=== PATIENT | male | born 1965 | race Caucasian/White ===

== ENCOUNTER 2017-09-06 13:04 | Emergency (ER) | payer MEDICARE, MEDICAID ==
[2016-02-16 10:09] VITALS: Ht 195.6 cm; Wt 128.8 kg
[~2017-09-06] VITALS: Ht 195.6 cm; Wt 128.8 kg
[~2017-09-06 13:04] MED LIST: ACET-2031 PO; ACET500T68 PO; ALBU8.5H11 INH; ALBU8.5H12 IH; AMOX500T10 PO; APIX2.5T PO; ARIP5TAB28 PO; ASPI-715 PO; ATIVAN; AZIT-18 PO; AZIT500T47 PO; BENZ1 PO; BRIM5DRO7 OU; BRIM5DRO8 OP; BRIOD OS; BUPR200T18 PO; BUS5 PO; BUSP10TA95 PO; BUSP15TA69 PO; BUSP7.5T7 PO; CEP500 PO; CEPH-13 PO; CETI10TA PO; CITA-155 PO; CITA-156 PO; CLO5 PO; CLOM25CA PO; CYCL-277 PO; CYCL10TA29 PO; DESV50TA9 PO; DIA10 PO; DIA5 PO; DIAZ-308 PO; DICL-195 PO; DIPH-740 PO; DOCU-202 PO; ENO150PT SQ; ENO40I SQ; ENOX120D5 SQ; ENOX60DI8 SQ; FLU60SYR30 IM ONLY; FLUO-177 PO; GOLYTE PO; HYDR-3074 PO; HYDR-385 PO; HYDR-4309 PO; HYDR25CA13 PO; HYDR25CA84 PO; HYDR50CA48 PO; IBUP600T22 PO; IBUP800T37 PO; ICOS1CAP PO; IPR14R INH; IPRA30SP7 NS; KET10 PO; LOR1 PO; LOR5 PO; LOR5/325 PO; LORA-1455 PO; LORA-1458 PO; LURA20TA PO; LURA40TA3 PO; MELA1TAB27 PO; METH-542 PO; METH-543 PO; MINE120C6 TP; MIR15 PO; MIRT-18 PO; MIRT-25 PO; MIRT45TA97 PO; MULT-1379 PO; MULT-820 PO; MULT-859 PO; MULT-865 PO; MVM PO; MYLL PO; NIAC-8 PO; NO MEDS; OLA5 PO; OLAN10TA19 PO; OLAN2.5T20 PO; OLAN2.5T22 PO; OLAN20TA17 PO; OLAN20TA20 PO; OLAN5TAB PO; OLAN5TAB25 PO; OLAN5TAB27 PO; OMEG-80 PO; OMEP-153 PO; OMEP-218 PO; OXCA600T30 PO; PAN40 PO; PANT20TA26 PO; PARO-243 PO; PER PO; PRAZ1CAP26 PO; PSEU30TA PO; QUE100 PO; QUET300T17 PO; QUEXR300PT PO; RANI-324 PO; RIV10 PO; RIVA10TA; RIVA20TA PO; ROSU20TA23 PO; SALSP ENA; SULF-198 PO; TIO18R INH; TOBDOO OD; TOPI-121 PO; TRAM-420; TRAM-420 PO; TRAZ-163 PO; TRAZ300T17 PO; VILA10TA PO; VITA100C12 PO; WAR5 PO; WAR75 PO; WARF-12 PO; WARF-18 PO; ZIPR40CA13 PO; ZOLP-350 PO; [UNRECOGNIZED DRUG - CODE] PO; [UNRECOGNIZED DRUG - CODE] PO; [UNRECOGNIZED DRUG - CODE] TP; [UNRECOGNIZED DRUG - OTHER]
[2017-09-06] MEDS ORDERED: APIX5TAB PO (13:14)
--- NOTE | 2017-09-06 13:15 | ER Report ---
History and Physical Time Seen By MD: 13:13 HPI/ROS CHIEF COMPLAINT: Racing Thoughts HISTORY OF PRESENT ILLNESS: Patient is a 52-year-old male who presents to the emergency department for anxiety situational depression and intense thoughts of harming himself. Patient apparently is well-known to [facility]. He's had multiple evaluations and admissions last was 02/16/2016. Patient had initially been "banned" from the unit due to threatening and stalking behavior to staff members. He states that he is going through a lot at his home, he is had problems with past residence for somewhat violent behavior and using profanity. He reports undergoing too many pressures of life and " feels anxious is having racing thoughts. He states he took 5 mg of Zyprexa without effect. Because the symptoms are worsening he decided to present to the ER for further evaluation. When asked specifically about suicidal plan he stated that he would overdose on medications if he had any. He states he has no access to a gun but does have a knife at home that he has thought about sticking into his neck. He states that it when this thought occurs it is fairly fleeting and he knows he does not want to "hurt himself" so he has not actually gone through with any suicide attempts. Denies drugs or alcohol but was noticed by nursing staff that he "smells of alcohol". Patient has a prior past medical history for DVT is currently on Eliquis. REVIEW OF SYSTEMS: Constitutional: No fever, no chills. Eyes: No discharge. ENT: No sore throat. Cardiovascular: No chest pain, no palpitations. Respiratory: No cough, no shortness of breath. Gastrointestinal: No abdominal pain, no vomiting. Genitourinary: No hematuria. Musculoskeletal: No back pain. Skin: No rashes. Neurological: No headache. Psychiatric: Racing intrusive thoughts suicidal ideation Allergies: Coded Allergies: Haloperidol Lactate (Verified Adverse Reaction, Severe, LARYNGOSPASM, ) niacin (Verified Adverse Reaction, Unknown, BODY RASH TO TORSO AND LIMBS, 09/06/17) Home Meds Active Scripts Lorazepam (ATIVAN) 1 Mg Tablet, 1 MG PO Q8H for Anxiety, #5 TAB 0 Refills Prov:ARSALAN ARMENTA MD 09/06/17 Olanzapine (OLANZAPINE) 5 Mg Tablet, 5 MG PO QDAY, #90 TAB 3 Refills Prov:DEJUAN DOSHI MD 06/26/17 Ipratropium [place] 17 Mcg/Act (ATROVENT HFA 17 MCG/ACT) 12.9 Gm Inh, 12.9 GM INH Q4H Y for SHORTNESS OF BREATH, #3 INH 4 Refills Prov:DEJUAN DOSHI MD 05/23/17 Reported Medications Apixaban (ELIQUIS) 5 Mg Tablet, 15 MG PO BID 09/06/17 Acetaminophen (TYLENOL EXTRA STRENGTH) 500 Mg Tablet, 1-2 TAB PO, TAB 03/01/17 Brimonidine Tartrate (ALPHAGAN P) 5 Ml Drops, 1 DROP OU BID 12/13/14 Discontinued Reported Medications Buspirone Hcl (BUSPIRONE HCL) 15 Mg Tablet, 1 TAB PO BID, #10 TAB 03/01/17 Discontinued Scripts Apixaban (ELIQUIS) 2.5 Mg Tablet, 2.5 MG PO BID, #180 TAB 3 Refills Prov:DEJUAN DOSHI MD 06/26/17 Diazepam (DIAZEPAM) 5 Mg Tablet, 5 MG PO TID, #20 TAB Prov:DEJUAN DOSHI MD 06/26/17 Tiotropium [place] (SPIRIVA) 18 Mcg/Cap Inh, 18 MCG INH DAILY, #30 INH Prov:DEJUAN DOSHI MD 05/29/17 Past Medical/Surgical History Past Medical History HEENT: Reports hx of: glaucoma (closed angle glaucoma) Cardiovascular: Reports hx of: DVT (2009 and 2011 in left leg) hyperlipidemia (simvastatin/ atorvastatin/niacin / fish oil) Gastrointestinal: Reports hx of: GERD other GI history (diffuse esophageal spasms) Musculoskeletal: Reports hx of: back pain (chronic) fibromyalgia Integumentary: Reports hx of: other integumentary hx (left ear basal cell CA in 2008, skin cancer removal) Psychiatric: Reports hx of: anxiety depression personality disorder (borderline personality disorder) psych hospitalization suicide attempt(s) (2 attempts, last attempt 1992) Past Surgical History Integumentary: Reports hx of: skin cancer removal (left ear, 2008) Hx Smoking: Yes (1 PPWEEK X37YRS) Smoking Status: Current: Every Day Smoker Exposure to Second Hand Smoke?: No Hx Substance Use Disorder: No Hx Alcohol Use: Yes Constitutional Vital Sign - Last 24 Hours 09/06/17 09/06/17 13:04 14:30 Temp 97.9 Pulse 83 80 Resp 16 16 B/P (MAP) 151/90 141/86 (104) Pulse Ox 95 95 O2 Delivery Room Air Room Air Physical Exam General Appearance: The patient is alert, has no immediate need for airway protection and no signs of toxicity. Increased psychomotor agitation Eyes: Pupils equal and round no pallor or injection. ENT, Mouth: Mucous membranes are moist. Respiratory: There are no retractions, lungs are clear to auscultation. Cardiovascular: Regular rate and rhythm. Gastrointestinal: Abdomen is soft and non tender, no masses, bowel sounds normal. Neurological: Awake alert oriented 3 Skin: Warm and dry, no rashes. Musculoskeletal: Neck is supple non tender. Extremities are nontender, nonswollen and have full range of motion. Psychiatric: Racing intrusive thoughts, suicidal ideation mention of a plant stick a knife in his neck. Patient somewhat tangential but thought process seems logical and goal-directed. Patient does not seem to be responding to any internal stimuli. Medical Decision Making Data Points Result Diagram: 09/06/17 1320 09/06/17 1320 Laboratory Hematology Test 09/06/17 13:20 Red Blood Count 5.36 M/uL (4.00-5.60) Mean Corpuscular Volume 89.1 fL (80.0-96.0) Mean Corpuscular Hemoglobin 31.2 pg (26.0-33.0) Mean Corpuscular Hemoglobin Concent 35.0 g/dL (32.0-36.0) Red Cell Distribution Width 13.2 % (11.5-14.5) Mean Platelet Volume 8.4 fL (7.2-11.1) Neutrophils (%) (Auto) 67.1 % (39.4-72.5) Lymphocytes (%) (Auto) 25.6 % (17.6-49.6) Monocytes (%) (Auto) 5.9 % (4.1-12.4) Eosinophils (%) (Auto) 0.7 % (0.4-6.7) Basophils (%) (Auto) 0.7 % (0.3-1.4) Nucleated RBC Relative Count (auto) 0.2 /100WBC Neutrophils # (Auto) 4.2 K/uL (2.0-7.4) Lymphocytes # (Auto) 1.6 K/uL (1.3-3.6) Monocytes # (Auto) 0.4 K/uL (0.3-1.0) Eosinophils # (Auto) 0.0 K/uL (0.0-0.5) Basophils # (Auto) 0.0 K/uL (0.0-0.1) Nucleated RBC Absolute Count (auto) 0.01 K/uL Urine Color Yellow Urine Clarity Clear Urine pH 5.0 pH (4.8-9.5) Urine Specific [place] 1.011 Urine Protein Negative mg/dL (NEGATIVE) Urine Glucose (UA) Negative mg/dL (NEGATIVE) Urine Ketones Negative mg/dL (NEGATIVE) Urine Blood Negative (NEGATIVE) Urine Nitrite Negative (NEGATIVE) Urine Bilirubin Negative (NEGATIVE) Urine Urobilinogen Negative mg/dL (0.2-1.9) Urine Leukocyte Esterase Negative (NEGATIVE) Urine RBC <1 /HPF (0-2/HPF) Urine WBC <1 /HPF (0-5/HPF) Urine Squamous Epithelial Cells None /LPF (</=FEW) Urine Bacteria Negative /HPF (NONE-FEW) Urine Mucus None /HPF (NONE-FEW) Sodium Level 137 mmol/L (137-145) Potassium Level 3.8 mmol/L (3.5-5.0) Chloride Level 106 mmol/L (98-107) Carbon Dioxide Level 17 mmol/L (22-30) Blood Urea Nitrogen 12 mg/dl (9-21) Creatinine 1.00 mg/dl (0.66-1.25) Glomerular Filtration Rate Calc > 60.0 Random Glucose 110 mg/dl (75-110) Calcium Level 9.8 mg/dl (8.4-10.2) Magnesium Level 1.8 mg/dl (1.7-2.2) Total Bilirubin 0.6 mg/dl (0.2-1.3) Aspartate Amino Transf (AST/SGOT) 34 U/L (0-35) Alanine Aminotransferase (ALT/SGPT) 62 U/L (0-56) Alkaline Phosphatase 80 U/L (0-126) Total Protein 7.5 gm/dl (6.3-8.2) Albumin 4.6 g/dl (3.5-5.0) Thyroid Stimulating Hormone (TSH) 1.46 uIU/ml (0.46-4.68) Salicylates Level < 10 mg/L Salicylate Last Dose Date unk Urine Opiates Screen Negative Acetaminophen Level < 10 ug/ml Urine Barbiturates Screen Negative Ur Tricyclic Antidepressants Screen Negative Urine Phencyclidine Screen Negative Urine Amphetamines Screen Negative Urine Benzodiazepines Screen Negative Urine Cocaine Screen Negative Urine Cannabinoids Screen Negative Serum Alcohol < 10 mg/dl Chemistry Test 09/06/17 13:20 White Blood Count 6.3 k/uL (4.5-11.0) Red Blood Count 5.36 M/uL (4.00-5.60) Hemoglobin 16.7 g/dL (14.0-18.0) Hematocrit 47.8 % (42.0-52.0) Mean Corpuscular Volume 89.1 fL (80.0-96.0) Mean Corpuscular Hemoglobin 31.2 pg (26.0-33.0) Mean Corpuscular Hemoglobin Concent 35.0 g/dL (32.0-36.0) Red Cell Distribution Width 13.2 % (11.5-14.5) Platelet Count 213 K/uL (150-450) Mean Platelet Volume 8.4 fL (7.2-11.1) Neutrophils (%) (Auto) 67.1 % (39.4-72.5) Lymphocytes (%) (Auto) 25.6 % (17.6-49.6) Monocytes (%) (Auto) 5.9 % (4.1-12.4) Eosinophils (%) (Auto) 0.7 % (0.4-6.7) Basophils (%) (Auto) 0.7 % (0.3-1.4) Nucleated RBC Relative Count (auto) 0.2 /100WBC Neutrophils # (Auto) 4.2 K/uL (2.0-7.4) Lymphocytes # (Auto) 1.6 K/uL (1.3-3.6) Monocytes # (Auto) 0.4 K/uL (0.3-1.0) Eosinophils # (Auto) 0.0 K/uL (0.0-0.5) Basophils # (Auto) 0.0 K/uL (0.0-0.1) Nucleated RBC Absolute Count (auto) 0.01 K/uL Urine Color Yellow Urine Clarity Clear Urine pH 5.0 pH (4.8-9.5) Urine Specific [place] 1.011 Urine Protein Negative mg/dL (NEGATIVE) Urine Glucose (UA) Negative mg/dL (NEGATIVE) Urine Ketones Negative mg/dL (NEGATIVE) Urine Blood Negative (NEGATIVE) Urine Nitrite Negative (NEGATIVE) Urine Bilirubin Negative (NEGATIVE) Urine Urobilinogen Negative mg/dL (0.2-1.9) Urine Leukocyte Esterase Negative (NEGATIVE) Urine RBC <1 /HPF (0-2/HPF) Urine WBC <1 /HPF (0-5/HPF) Urine Squamous Epithelial Cells None /LPF (</=FEW) Urine Bacteria Negative /HPF (NONE-FEW) Urine Mucus None /HPF (NONE-FEW) Glomerular Filtration Rate Calc > 60.0 Calcium Level 9.8 mg/dl (8.4-10.2) Magnesium Level 1.8 mg/dl (1.7-2.2) Total Bilirubin 0.6 mg/dl (0.2-1.3) Aspartate Amino Transf (AST/SGOT) 34 U/L (0-35) Alanine Aminotransferase (ALT/SGPT) 62 U/L (0-56) Alkaline Phosphatase 80 U/L (0-126) Total Protein 7.5 gm/dl (6.3-8.2) Albumin 4.6 g/dl (3.5-5.0) Thyroid Stimulating Hormone (TSH) 1.46 uIU/ml (0.46-4.68) Salicylates Level < 10 mg/L Salicylate Last Dose Date unk Urine Opiates Screen Negative Acetaminophen Level < 10 ug/ml Urine Barbiturates Screen Negative Ur Tricyclic Antidepressants Screen Negative Urine Phencyclidine Screen Negative Urine Amphetamines Screen Negative Urine Benzodiazepines Screen Negative Urine Cocaine Screen Negative Urine Cannabinoids Screen Negative Serum Alcohol < 10 mg/dl Toxicology Test 09/06/17 13:20 Salicylates Level < 10 mg/L Salicylate Last Dose Date unk Urine Opiates Screen Negative Acetaminophen Level < 10 ug/ml Urine Barbiturates Screen Negative Ur Tricyclic Antidepressants Screen Negative Urine Phencyclidine Screen Negative Urine Amphetamines Screen Negative Urine Benzodiazepines Screen Negative Urine Cocaine Screen Negative Urine Cannabinoids Screen Negative Serum Alcohol < 10 mg/dl Urinalysis Test 09/06/17 13:20 Urine Color Yellow Urine Clarity Clear Urine pH 5.0 pH (4.8-9.5) Urine Specific [place] 1.011 Urine Protein Negative mg/dL (NEGATIVE) Urine Glucose (UA) Negative mg/dL (NEGATIVE) Urine Ketones Negative mg/dL (NEGATIVE) Urine Blood Negative (NEGATIVE) Urine Nitrite Negative (NEGATIVE) Urine Bilirubin Negative (NEGATIVE) Urine Urobilinogen Negative mg/dL (0.2-1.9) Urine Leukocyte Esterase Negative (NEGATIVE) Urine RBC <1 /HPF (0-2/HPF) Urine WBC <1 /HPF (0-5/HPF) Urine Squamous Epithelial Cells None /LPF (</=FEW) Urine Bacteria Negative /HPF (NONE-FEW) Urine Mucus None /HPF (NONE-FEW) EKG/Imaging EKG Interpretation EKG shows normal sinus rhythm with no significant ST segment or T-wave abnormalities. Monitor Interpretation: Normal Sinus Rhythm ED Course/Re-evaluation ED Course 09/06/2017 1:33:49 pm Plan at this time will be medical screening evaluation. We'll reassess psychiatric condition we'll give patient 2 mg of oral Ativan for anxiety. Decision to Disposition Date: Sep 06, 2017 Decision to Disposition Time: 14:22 Depart Departure Latest Vital Signs Vital Signs Date Time Temp Pulse Resp B/P (MAP) Pulse Ox O2 Delivery O2 Flow Rate FiO2 09/06/17 14:30 80 16 141/86 (104) 95 Room Air 09/06/17 13:04 97.9 Impression: Primary Impression: Adjustment disorder with depressed mood Condition: Improved Disposition: HOME OR SELF-CARE Referrals: DEJUAN DOSHI MD (PCP) New Scripts Lorazepam (ATIVAN) 1 Mg Tablet 1 MG PO Q8H for Anxiety, #5 TAB 0 Refills Prov: ARSALAN ARMENTA MD 09/06/17 Patient Instructions: Anxiety (ED), Suicide Prevention for Adults (DC) ARSALAN ARMENTA MD Sep 06, 2017 13:15
[2017-09-06] MEDS ORDERED: LORazepam 1 MG TAB PO ONE (13:30)
--- NOTE | 2017-09-06 13:35 | EKG ---
FACILITY: [facility] PATIENT NAME: BLANCO RUFFIN : [id number] MR: [id number] V: [id number] EXAM DATE: ORDERING PHYSICIAN: ARSALAN ARMENTA TECHNOLOGIST: ALEJANDRO Mari Reason : ANXIETY Blood Pressure : / mmHG Vent. Rate : 079 BPM Atrial Rate : 079 BPM P-R Int : 160 ms QRS Dur : 102 ms QT Int : 396 ms P-R-T Axes : 053 037 034 degrees QTc Int : 454 ms Normal sinus rhythm Normal ECG When compared with ECG of 02-MAR-2017 16:11, No significant change was found Confirmed by MAXIMILIANO LINN ([id number]) on 09/08/2017 7:43:36 AM Referred By: GEOVANY Confirmed By:MAXIMILIANO LINN
[2017-09-06 13:42] LABS: PLATELET COUNT, AUTOMATED 213 K/uL (150-450)
[2017-09-06] MEDS ORDERED: LORA-1456 PO (14:24)
[2017-09-06 14:30] VITALS: BP 141/86
== END 2017-09-06 14:30 | disposition home or self-care (01) ==
LOC: ER 13:34
DX: F43.23 Adjustment disorder with mixed anxiety and depressed mood (principal)
CPT/HCPCS: 36415; 80305; 81001; 83735; 84443; 85025; 93005; 99283; A9270; G0480; 80320; 80329; 82040; 82247; 82310; 82374; 82435; 82565; 82947; 84075; 84132; 84155; 84295; 84450; 84460; 84520

== ENCOUNTER 2017-10-01 04:41 | Emergency (ER) | payer MEDICARE, MEDICAID ==
[2016-02-16 10:09] VITALS: Wt 128.8 kg
[~2017-10-01 04:41] MED LIST changes: +APIX5TAB PO; +LORA-1456 PO; -WARF-18 PO; +WARF5TAB23 PO
--- NOTE | 2017-10-01 04:46 | ER Report ---
History and Physical Time Seen By MD: 04:45 HPI/ROS CHIEF COMPLAINT: Anxiety HISTORY OF PRESENT ILLNESS: 52-year-old male presents ambulatory to the ER complaining of severe anxiety. Patient's shaking and unable to sleep. He's woke up at 3 times with 3 different nightmares. He states his neighbors of an agitated by being on the wall. He would like to speak to the police about his neighbors. Patient was seen here approximately 2 weeks ago with acute anxiety attack expressing some suicidal ideation. Patient's been banned from the behavioral health services unit for stalking and threatening / inappropriate behavior. Patient's last admission was February 2016. Patient notes he shaking and overwhelmed. He is denying suicidal ideation. REVIEW OF SYSTEMS: Respiratory: No cough, no dyspnea. Cardiovascular: No chest pain, no palpitations. Gastrointestinal: No vomiting, no abdominal pain. Musculoskeletal: No back pain. Allergies: Coded Allergies: Haloperidol Lactate (Verified Adverse Reaction, Severe, LARYNGOSPASM, 10/01) niacin (Verified Adverse Reaction, Unknown, BODY RASH TO TORSO AND LIMBS, 10/01/17) Home Meds Active Scripts Lorazepam (ATIVAN) 1 Mg Tablet, 1 MG PO Q4-6H Y for ANXIETY, #15 Prov:HAIR FLOWER DO 10/01/17 Olanzapine (OLANZAPINE) 5 Mg Tablet, 5 MG PO QDAY, #90 TAB 3 Refills Prov:DEJUAN DOSHI MD 06/26/17 Ipratropium [place] 17 Mcg/Act (ATROVENT HFA 17 MCG/ACT) 12.9 Gm Inh, 12.9 GM INH Q4H Y for SHORTNESS OF BREATH, #3 INH 4 Refills Prov:DEJUAN DOSHI MD 05/23/17 Reported Medications Apixaban (ELIQUIS) 5 Mg Tablet, 15 MG PO BID 09/06/17 Acetaminophen (TYLENOL EXTRA STRENGTH) 500 Mg Tablet, 1-2 TAB PO, TAB 03/01/17 Brimonidine Tartrate (ALPHAGAN P) 5 Ml Drops, 1 DROP OU BID 12/13/14 Discontinued Scripts Lorazepam (ATIVAN) 1 Mg Tablet, 1 MG PO Q8H for Anxiety, #5 TAB 0 Refills Prov:ARSALAN ARMENTA MD 09/06/17 Past Medical/Surgical History Past Medical History HEENT: Reports hx of: glaucoma (closed angle glaucoma) Cardiovascular: Reports hx of: DVT (2009 and 2011 in left leg) hyperlipidemia (simvastatin/ atorvastatin/niacin / fish oil) Gastrointestinal: Reports hx of: GERD other GI history (diffuse esophageal spasms) Musculoskeletal: Reports hx of: back pain (chronic) fibromyalgia Integumentary: Reports hx of: other integumentary hx (left ear basal cell CA in 2008, skin cancer removal) Psychiatric: Reports hx of: anxiety depression personality disorder (borderline personality disorder) psych hospitalization suicide attempt(s) (2 attempts, last attempt 1992) Past Surgical History Integumentary: Reports hx of: skin cancer removal (left ear, 2008) Reviewed Nurses Notes: Yes Old Medical Records Reviewed: Yes Hx Smoking: Yes (1 PPWEEK X37YRS) Smoking Status: Current: Every Day Smoker Exposure to Second Hand Smoke?: No Hx Substance Use Disorder: No Hx Alcohol Use: Yes Constitutional Vital Sign - Last 24 Hours 10/01/17 10/01/17 04:43 05:33 Temp 98.2 Pulse 107 80 Resp 22 B/P (MAP) 131/104 148/72 (97) Pulse Ox 97 O2 Delivery Room Air Physical Exam General Appearance: The patient is alert, has no immediate need for airway protection and no current signs of toxicity. Tremulous, agitated, anxious- appearing HEENT: Pupils equal and round no injection. Oropharynx without redness or exudate, mucous membranes are moist Respiratory: Chest is non tender, lungs are clear to auscultation. Cardiac: regular rate and rhythm Gastrointestinal: Abdomen is soft and non tender, no masses, bowel sounds normal. Musculoskeletal: Neck: Neck is supple and non tender. No thyromegaly Extremities have full range of motion and are non tender. Skin: No rashes or lesions. DIFFERENTIAL DIAGNOSIS: After history and physical exam differential diagnosis was considered for depression including functional and major depression, situational depression, medication side effect, anxiety, panic attack, drugs and alcohol abuse. Medical Decision Making ED Course/Re-evaluation ED Course Patient was admitted to an examination room. H&P was done. The dental diagnoses was considered. Patient with acute agitation and anxiety. She's been unable to sleep. He's been chain smoking cigarettes. He presents to the ER. He is not suicidal or homicidal. He is quite frustrated with his neighbors. He is woken up with 3 nightmares tonight starring his neighbors. Patient's medicated with Ativan 2 mg by mouth. He is monitored for 45 minutes feels improved. He's spoken with police regarding his neighbors. Patient advised to follow-up with his primary care Decision to Disposition Date: Oct 01, 2017 Decision to Disposition Time: 05:07 Depart Departure Latest Vital Signs Vital Signs Date Time Temp Pulse Resp B/P (MAP) Pulse Ox O2 Delivery O2 Flow Rate FiO2 10/01/17 05:33 80 148/72 (97) 10/01/17 04:43 98.2 22 97 Room Air Impression: Primary Impression: Anxiety Additional Impressions: Panic attack Nightmares Condition: Improved Disposition: HOME OR SELF-CARE Referrals: DEJUAN DOSHI MD (PCP) New Scripts Lorazepam (ATIVAN) 1 Mg Tablet 1 MG PO Q4-6H Y for ANXIETY, #15 Prov: HAIR FLOWER DO 10/01/17 Patient Instructions: Anxiety (ED) Problem Qualifiers HAIR FLOWER DO Oct 01, 2017 04:46
[2017-10-01] MEDS ORDERED: LORazepam 1 MG TAB PO ONE (05:00)
[2017-10-01] MEDS ORDERED: LORA-1456 PO (05:10)
[2017-10-01 05:33] VITALS: BP 148/72
== END 2017-10-01 05:32 | disposition home or self-care (01) ==
LOC: ER 04:58
DX: F41.0 Panic disorder [episodic paroxysmal anxiety] (principal); F51.5 Nightmare disorder
CPT/HCPCS: 99282; A9270

== ENCOUNTER 2017-11-02 15:49 | Emergency (ER) | payer MEDICARE, MEDICAID ==
[2016-02-16 10:09] VITALS: Wt 125.6 kg
--- NOTE | 2017-11-02 16:00 | ER Report ---
History and Physical Time Seen By MD: 16:00 Hx. of Stated Complaint: PATIENT HAVING INCREASED ANXIETY FROM AN ALTERCATION WITH HIS NEIGHBOR HPI/ROS CHIEF COMPLAINT: Anxiety HISTORY OF PRESENT ILLNESS: 52-year-old male patient presents to emergency room with complaint of anxiety. Patient states that he has been having troubles with his new neighbor. Patient states that he was trying to go upstairs to his apartment elevator, however this neighbor was blocking the elevator. That caused him to become very anxious, he states he is having a hard time controlling himself. He states that he quit smoking for 2 weeks, however last couple hours he has "chain smoked". Patient states that he had a fleeting thought of harming self, however denies any suicidal ideation or homicidal ideation at this time. Patient states that he would like some Ativan to help with his anxiety and he liked to go home. He states that he is here because he is unable to control his anxiety. REVIEW OF SYSTEMS: Respiratory: No cough, no dyspnea. Cardiovascular: No chest pain, no palpitations. Gastrointestinal: No vomiting, no abdominal pain. Musculoskeletal: No back pain. Allergies: Coded Allergies: Haloperidol Lactate (Verified Adverse Reaction, Severe, LARYNGOSPASM, 10/01) niacin (Verified Adverse Reaction, Unknown, BODY RASH TO TORSO AND LIMBS, 10/01/17) Home Meds Active Scripts Lorazepam (ATIVAN) 1 Mg Tablet, 1 MG PO Q4-6H Y for ANXIETY, #15 TAB Prov:SAAD MUÑIZ STORYBOARD ARTIST 11/02/17 Lorazepam (ATIVAN) 1 Mg Tablet, 1 MG PO Q4-6H Y for ANXIETY, #15 Prov:HAIR FLOWER DO 10/01/17 Olanzapine (OLANZAPINE) 5 Mg Tablet, 5 MG PO QDAY, #90 TAB 3 Refills Prov:DEJUAN DOSHI MD 06/26/17 Ipratropium [place] 17 Mcg/Act (ATROVENT HFA 17 MCG/ACT) 12.9 Gm Inh, 12.9 GM INH Q4H Y for SHORTNESS OF BREATH, #3 INH 4 Refills Prov:DEJUAN DOSHI MD 05/23/17 Reported Medications Apixaban (ELIQUIS) 5 Mg Tablet, 15 MG PO BID 09/06/17 Acetaminophen (TYLENOL EXTRA STRENGTH) 500 Mg Tablet, 1-2 TAB PO, TAB 03/01/17 Brimonidine Tartrate (ALPHAGAN P) 5 Ml Drops, 1 DROP OU BID 12/13/14 Past Medical/Surgical History Patient has a past medical history of DVT, hyperlipidemia, esophageal spasms, muscle tension, kidney stones, arthritis, hand fracture, foot fracture, nose fracture, back pain, dysphagia, alcohol abuse, schizoaffective disorder, depression, anxiety, cancer. Patient has a surgical history of eye surgery, skin cancer moves from left ear, left wrist surgery. Patient has a family medical history of cancer, CAD, stroke, depression. Reviewed Nurses Notes: Yes Hx Smoking: Yes (1 PPWEEK X37YRS) Smoking Status: Current: Every Day Smoker Exposure to Second Hand Smoke?: No Hx Substance Use Disorder: No Hx Alcohol Use: Yes Constitutional Vital Sign - Last 24 Hours 11/02/17 11/02/17 15:54 16:38 Temp 98.2 Pulse 77 71 Resp 20 20 B/P (MAP) 151/99 130/91 (104) Pulse Ox 95 95 O2 Delivery Room Air Room Air Physical Exam General Appearance: The patient is alert, has no immediate need for airway protection and no current signs of toxicity. Respiratory: Chest is non tender, lungs are clear to auscultation. Cardiac: regular rate and rhythm Gastrointestinal: Abdomen is soft and non tender, no masses, bowel sounds normal. Musculoskeletal: Neck: Neck is supple and non tender. Extremities have full range of motion and are non tender. Skin: No rashes or lesions. Psych: Patient is alert and oriented 4, patient appears very anxious, he is restless in the room. Constantly moving position. DIFFERENTIAL DIAGNOSIS: After history and physical exam differential diagnosis was considered for anxiety Medical Decision Making ED Course/Re-evaluation ED Course Patient was admitted and examined, history and physical were obtained. Differential diagnoses were considered. On examination patient is very anxious. Patient was given Ativan. We monitored him for 34 5 minutes. When he states he' s felt significant better we'll go ahead and discharge patient home. Patient was given a prescription for supply of Ativan. He is follow-up with his primary care provider. They discussed him going to psychology for further evaluation and for med management. Discussed this with the patient who verbalized understanding and agreement. Decision to Disposition Date: Nov 02, 2017 Decision to Disposition Time: 16:30 Depart Departure Latest Vital Signs Vital Signs Date Time Temp Pulse Resp B/P (MAP) Pulse Ox O2 Delivery O2 Flow Rate FiO2 11/02/17 16:38 71 20 130/91 (104) 95 Room Air 11/02/17 15:54 98.2 Impression: Primary Impression: Anxiety Condition: Improved Disposition: HOME OR SELF-CARE Referrals: DEJUAN DOSHI MD (PCP) New Scripts Lorazepam (ATIVAN) 1 Mg Tablet 1 MG PO Q4-6H Y for ANXIETY, #15 TAB Prov: SAAD MUÑIZ 11/02/17 Patient Instructions: Anxiety (ED) Additional Instructions: Get plenty of rest. Return to the ER if condition worsens. Follow up with your primary care provider in the next week. Do things that help with your anxiety. Increase exercise. SAAD MUÑIZ Nov 02, 2017 16:00
[2017-11-02] MEDS ORDERED: LORazepam 1 MG TAB PO ONE (16:10)
[2017-11-02] MEDS ORDERED: LORA-1456 PO (16:28)
[2017-11-02 16:38] VITALS: BP 130/91
== END 2017-11-02 16:40 | disposition home or self-care (01) ==
LOC: ER 16:01
DX: F41.9 Anxiety disorder, unspecified (principal)
CPT/HCPCS: 99282; A9270

== ENCOUNTER 2017-11-15 18:51 | Emergency (ER) | payer MEDICARE, MEDICAID ==
[2016-02-16 10:09] VITALS: Wt 125.2 kg
[~2017-11-15 18:51] MED LIST changes: -GABA-549 PO; +RANI-324 PO; -RANI-366 PO
[2017-11-15 18:53] VITALS: BP 148/90
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
[2017-11-15] MEDS ORDERED: GABA-549 PO (20:12)
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
== END 2017-11-15 21:02 | disposition left against medical advice (07) ==
LOC: ER 19:00
DX: S16.1XXA Strain of muscle, fascia and tendon at neck level, initial encounter (principal); S00.03XA Contusion of scalp, initial encounter; S29.019A Strain of muscle and tendon of unspecified wall of thorax, initial encounter; V43.52XA Car driver injured in collision with other type car in traffic accident, initial encounter
CPT/HCPCS: 70450; 72125; 72128; 99283

== ENCOUNTER → 2017-11-15 | Outpatient (CLI) | payer OTHER, MEDICARE, MEDICAID ==
[2016-02-16 10:09] VITALS: BMI 33.1
[~2017-11-15] MED LIST changes: +GABA-549 PO; -RANI-324 PO; +RANI-366 PO
== END ==
LOC: AMB 18:28
PROVIDERS: ATTEND Nurse Practitioner
DX: R51 Headache (principal); M54.2 Cervicalgia; R20.2 Paresthesia of skin; V49.40XA Driver injured in collision with unspecified motor vehicles in traffic accident, initial encounter
CPT/HCPCS: A0425; A0429

== ENCOUNTER 2017-11-27 16:26 | Emergency (ER) | payer MEDICARE, MEDICAID ==
[2016-02-16 10:09] VITALS: BMI 33.1
[~2017-11-27 16:26] MED LIST changes: +GABA-549 PO; -RANI-324 PO; +RANI-366 PO
[2017-11-27] MEDS ORDERED: KETOROLAC 60 MG/2 ML VIAL IM ONE (16:50)
--- NOTE | 2017-11-27 16:51 | ER Report ---
History and Physical Time Seen By MD: 16:39 Hx. of Stated Complaint: patient reports that he popped his back on and has been having lower left back pain since then. he is able to ambulate. patient denies problems with bowel or bladder HPI/ROS CHIEF COMPLAINT: Back pain HISTORY OF PRESENT ILLNESS: 52-year-old male patient presents to emergency room with complaint of back pain. Patient states that this been going on since last . He states that at that time he was saying his bathtub, he extended his legs and pushed his back against back patella. We did that he felt a popping in his back. Patient states that since then he's been having significant back pain. He states that on Sunday and Sunday he was unable to do much due to the pain. He states that things have improved. He states he has had some diarrhea since this occurred, however denies any loss of bowel or bladder control. Patient denies any saddle paresthesia. Patient states that his pain typically is around a 4 out of 10, however he can get as bad as an 8-9 out of 10. Patient is taken some Tylenol today with no improvement. REVIEW OF SYSTEMS: Respiratory: No cough, no dyspnea. Cardiovascular: No chest pain, no palpitations. Gastrointestinal: No vomiting, no abdominal pain. Musculoskeletal: As noted above Allergies: Coded Allergies: Haloperidol Lactate (Verified Adverse Reaction, Severe, LARYNGOSPASM, 10/01) niacin (Verified Adverse Reaction, Unknown, BODY RASH TO TORSO AND LIMBS, 10/01/17) Home Meds Active Scripts Ketorolac Tromethamine (KETOROLAC TROMETHAMINE) 10 Mg Tab, 10 MG PO Q6H, #20 TAB Prov:SAAD MUÑIZ 11/27/17 Olanzapine (OLANZAPINE) 5 Mg Tablet, 5 MG PO QDAY, #90 TAB 3 Refills Prov:DEJUAN DOSHI MD 06/26/17 Ipratropium [place] 17 Mcg/Act (ATROVENT HFA 17 MCG/ACT) 12.9 Gm Inh, 12.9 GM INH Q4H Y for SHORTNESS OF BREATH, #3 INH 4 Refills Prov:DEJUAN DOSHI MD 05/23/17 Reported Medications Gabapentin (GABAPENTIN) 300 Mg Capsule, 300 MG PO BID, CAPSULE 11/15/17 Apixaban (ELIQUIS) 5 Mg Tablet, 15 MG PO BID 09/06/17 Acetaminophen (TYLENOL EXTRA STRENGTH) 500 Mg Tablet, 1-2 TAB PO, TAB 03/01/17 Brimonidine Tartrate (ALPHAGAN P) 5 Ml Drops, 1 DROP OU BID 12/13/14 Past Medical/Surgical History Patient has a past medical history of DVT, hyperlipidemia, esophageal spasms, kidney stones, muscle tension, arthritis, fractures, back pain, dysphagia, esophageal spasms, schizoaffective disorder, depression, anxiety, skin cancer. Patient has surgical history of eye surgery, ear surgery, reconstructive surgery of the left wrist. Patient has a family medical history of cancer, CAD, stroke, psychiatric problems. Reviewed Nurses Notes: Yes Hx Smoking: Yes (1 PPWEEK X37YRS) Smoking Status: Current: Every Day Smoker Exposure to Second Hand Smoke?: No Hx Substance Use Disorder: No Hx Alcohol Use: Yes Constitutional Vital Sign - Last 24 Hours 11/27/17 11/27/17 11/27/17 11/27/17 16:29 16:30 16:45 16:56 Temp 97.8 Pulse 85 80 Resp 20 B/P (MAP) 140/93 (109) 140/90 (107) Pulse Ox 95 94 O2 Delivery Room Air 11/27/17 11/27/17 11/27/17 11/27/17 17:00 17:15 17:26 17:30 Pulse 75 B/P (MAP) 136/83 (100) 132/84 (100) 127/85 (99) Pulse Ox 92 Physical Exam General Appearance: The patient is alert, has no immediate need for airway protection and no current signs of toxicity. Respiratory: Chest is non tender, lungs are clear to auscultation. Cardiac: regular rate and rhythm Gastrointestinal: Abdomen is soft and non tender, no masses, bowel sounds normal. Musculoskeletal: Neck: Neck is supple and non tender. Back: Patient has some tenderness to the lumbar spine, pain seemed be worse to the paraspinal muscles on the left side of the back. Straight leg lift was equal bilaterally, no bruising was noted to the lumbar spine. Extremities have full range of motion and are non tender. Skin: No rashes or lesions. DIFFERENTIAL DIAGNOSIS: After history and physical exam differential diagnosis was considered for back pain including but not limited to muscular pain, herniated disc, spine fracture, intra-abdominal causes and urinary tract infection. Medical Decision Making EKG/Imaging Imaging Exam type: LUMBAR SPINE 4 VIEWS History: Low back pain, injured last , felt pop in back Comparison: December 24, 2016. Findings: There are five nonrib-bearing lumbar-type vertebral bodies present there is no evidence of acute fractures or subluxations. Marginal spurring is noted at L1- 2 and L3-4 similar to the prior study. This mild disc space narrowing at L1-2 with mild sclerosis of the adjacent endplates perhaps minimally more prominent IMPRESSION: 1. No evidence of acute fractures or subluxations in the lumbar spine Spondylotic changes as described slightly increased at L1-2 when compared to the prior study. If Symptoms persist however MR may be helpful Report Dictated By: Lavonne Ledesma MD at 11/27/2017 5:25 PM Report E-Signed By: Lavonne Ledesma MD at 11/27/2017 5:28 PM ED Course/Re-evaluation ED Course Patient was admitted and examined, history and physical were obtained. Differential diagnoses were considered. On examination patient did have some tenderness to the lumbar spine, as well as some tenderness to the muscles. And x -rays done the lumbar spine, patient received 60 mg of IM Toradol. On reevaluation patient states he had significant improvement in the discomfort with the Toradol. He is rating his pain at a zero out of 10 at this point in time. The x-rays were unremarkable, patient did have some worsening spondylitic changes at L1-L2. I discussed this with the patient. We will go ahead and discharge patient home. He'll be given a prescription for Toradol. Patient verbalized understanding and agreement with plan. Decision to Disposition Date: Nov 27, 2017 Decision to Disposition Time: 17:44 Depart Departure Latest Vital Signs Vital Signs Date Time Temp Pulse Resp B/P (MAP) Pulse Ox O2 Delivery O2 Flow Rate FiO2 11/27/17 17:30 127/85 (99) 11/27/17 17:26 75 92 11/27/17 16:30 97.8 20 Room Air Impression: Primary Impression: Lumbar strain Condition: Improved Disposition: HOME OR SELF-CARE Referrals: DEJUAN DOSHI MD (PCP) New Scripts Ketorolac Tromethamine (KETOROLAC TROMETHAMINE) 10 Mg Tab 10 MG PO Q6H, #20 TAB Prov: SAAD MUÑIZ 11/27/17 Patient Instructions: Low Back Strain (ED) Additional Instructions: Limit activity by pain. Get plenty of rest. Follow up with your primary care provider in the next week. Increase low impact aerobic activity, such as walking. Return to the ER if condition worsens. Problem Qualifiers Primary Impression: Lumbar strain Encounter type: initial encounter Qualified Codes: S39.012A - Strain of muscle, fascia and tendon of lower back, initial encounter SAAD MUÑIZ Nov 27, 2017 16:51
[2017-11-27 17:30] VITALS: BP 127/85
--- NOTE | 2017-11-27 17:33 | RADIOLOGY IMAGING REPORT ---
FACILITY: [facility] - [place] PATIENT NAME: Prudencio Connolly : 1965 MR: [id number] V: [id number] EXAM DATE: ORDERING PHYSICIAN: SAAD MUÑIZ TECHNOLOGIST: Location: [facility] - [place] Patient: Prudencio Connolly : 1965 Visit/Account:[id number] Date of Sevice: 11/27/2017 Exam type: LUMBAR SPINE 4 VIEWS History: Low back pain, injured last , felt pop in back Comparison: December 24, 2016. Findings: There are five nonrib-bearing lumbar-type vertebral bodies present there is no evidence of acute frac tures or subluxations. Marginal spurring is noted at L1-2 and L3-4 similar to the prior study. This mild disc space narrowing at L1-2 with mild sclerosis of the adjacent endplates perhaps minimally mo re prominent IMPRESSION: 1. No evidence of acute fractures or subluxations in the lumbar spine Spondylotic changes as described slightly increased at L1-2 when compared to the prior study. If Sym ptoms persist however MR may be helpful Report Dictated By: Lavonne Ledesma MD at 11/27/2017 5:25 PM Report E-Signed By: Lavonne Ledesma MD at 11/27/2017 5:28 PM WSN:[email or web address]
[2017-11-27] MEDS ORDERED: KET10 PO (17:41)
== END 2017-11-27 17:48 | disposition home or self-care (01) ==
LOC: ER 16:31
DX: S39.012A Strain of muscle, fascia and tendon of lower back, initial encounter (principal)
CPT/HCPCS: 72120; 96372; 99283; J1885

== ENCOUNTER 2018-01-28 17:08 | Emergency (ER) | payer MEDICARE, MEDICAID ==
[2016-02-16 10:09] VITALS: Wt 123.8 kg
--- NOTE | 2018-01-28 17:13 | ER Report ---
History and Physical Time Seen By MD: 17:11 HPI/ROS CHIEF COMPLAINT: JAW SPASMS HISTORY OF PRESENT ILLNESS: PT states that he feels that he is having a mild dystonic reaction to his zyprexa. Pt states years ago he was on haldol and had a severe dystonic reaction and his jaw locked. They switched him to zyprexa at that time and he had probems with esophageal spasms. They kept him on the zyprexa but decreased his dosage to 5mg and he was doing well. Pt states that a few days ago he decided to quit smoking and since then he has felt spasms in his jaw with episodes of tightening. States it feels similar to when he was on the haldol before his jaw completely seized. Pt denies chest pain or sob. Pt can currently move his jaw without obvious difficulty. PT states last time he was on valium and it helped and is asking for valium. Pt also decreaesd his zyprexa to 2.5mg today due to the symptoms. REVIEW OF SYSTEMS: Respiratory: No cough, no dyspnea. Cardiovascular: No chest pain, no palpitations. Gastrointestinal: No vomiting, no abdominal pain. Musculoskeletal: + jaw spasms. Neuro: no headache. Allergies: Coded Allergies: Haloperidol Lactate (Verified Adverse Reaction, Severe, LARYNGOSPASM, 01/28) niacin (Verified Adverse Reaction, Unknown, BODY RASH TO TORSO AND LIMBS, 01/28/18) Home Meds Active Scripts Diazepam (VALIUM) 5 Mg Tablet, 5 MG PO Q8H Y for MUSCLE SPASMS, #10 TAB Prov:YEIMY NEIL DO 01/28/18 Olanzapine (OLANZAPINE) 5 Mg Tablet, 5 MG PO QDAY, #90 TAB 3 Refills Prov:DEJUAN DOSHI MD 06/26/17 Ipratropium [place] 17 Mcg/Act (ATROVENT HFA 17 MCG/ACT) 12.9 Gm Inh, 12.9 GM INH Q4H Y for SHORTNESS OF BREATH, #3 INH 4 Refills Prov:DEJUAN DOSHI MD 05/23/17 Reported Medications Apixaban (ELIQUIS) 5 Mg Tablet, 15 MG PO BID 09/06/17 Acetaminophen (TYLENOL EXTRA STRENGTH) 500 Mg Tablet, 1-2 TAB PO, TAB 03/01/17 Brimonidine Tartrate (ALPHAGAN P) 5 Ml Drops, 1 DROP OU BID 12/13/14 Discontinued Reported Medications Gabapentin (GABAPENTIN) 300 Mg Capsule, 300 MG PO BID, CAPSULE 11/15/17 Discontinued Scripts Ketorolac Tromethamine (KETOROLAC TROMETHAMINE) 10 Mg Tab, 10 MG PO Q6H, #20 TAB Prov:SAAD MUÑIZ DIRECTOR [employer]AGE ENGINEERING 11/27/17 Past Medical/Surgical History Pmhx: DVT, hyperlipidemia, esophageal spasms, kidney stones, muscle tension, arthritis, fractures, back pain, dysphagia, esophageal spasms, schizoaffective disorder, depression, anxiety, skin cancer. Pshx: eye surgery, ear surgery, reconstructive surgery of the left wrist. Pfhx: cancer, CAD, stroke, psychiatric problems. Reviewed Nurses Notes: Yes Old Medical Records Reviewed: Yes Hx Smoking: Yes (1 PPWEEK X37YRS) Smoking Status: Current: Every Day Smoker (quit 4 days ago) Exposure to Second Hand Smoke?: No Hx Substance Use Disorder: No Hx Alcohol Use: Yes Constitutional Vital Sign - Last 24 Hours 01/28/18 17:12 Temp 97.5 Pulse 86 Resp 20 B/P (MAP) 145/102 Pulse Ox 96 O2 Delivery Room Air Physical Exam General Appearance: The patient is alert, has no immediate need for airway protection and no signs of toxicity. Eyes: Pupils equal and round no pallor or injection, EOMI ENT: no pharyngeal erythema or exudates, Mucous membranes are moist, TM are nl b/l, neg trismus, no clicking at the tmj joint Respiratory: There are no retractions, lungs are clear to auscultation. Cardiovascular: Regular rate and rhythm. pulses are equal and symmetrical Gastrointestinal: Abdomen is soft and non tender, no masses, bowel sounds normal, no guarding, no rigidity or rebound Neurological: Cranial nerves II-XII grossly intact, no sensory or motor loss Skin: Warm and dry, no rashes. Musculoskeletal: Neck is supple non tender, no vertebral tenderness Extremities are nontender, non swollen and have full range of motion. DIFFERENTIAL DIAGNOSIS: After history and physical exam differential diagnosis was considered for anxiety, jaw grinding, dystonic reaction Medical Decision Making ED Course/Re-evaluation ED Course No obvious dystonic reaction at this time however pt states he feels the spasms. zyprexa can cause dystonia. Told to call his prescribing doctor in the am. will give a dose of cogentin here and valium. monitor and if okay will dc. 01/28/2018 5:55:23 pm Pt feeling relief. will d/c to follow up with pcp. Decision to Disposition Date: Jan 28, 2018 Decision to Disposition Time: 17:53 Depart Departure Latest Vital Signs Vital Signs Date Time Temp Pulse Resp B/P (MAP) Pulse Ox O2 Delivery O2 Flow Rate FiO2 01/28/18 17:12 97.5 86 20 145/102 96 Room Air Impression: Primary Impression: Dystonic drug reaction Condition: Improved Disposition: HOME OR SELF-CARE Referrals: DEJUAN DOSHI MD (PCP) 2 Days New Scripts Diazepam (VALIUM) 5 Mg Tablet 5 MG PO Q8H Y for MUSCLE SPASMS, #10 TAB Prov: YEIMY NEIL DO 01/28/18 Patient Instructions: GENERAL ER DISCHARGE INSTRUCTIONS Additional Instructions: Call your doctor tomorrow to discuss your symptoms and your current medication list. You can use benadryl 50mg every 8 hours which should help with the spasms if it is a true dystonic reaction. Valium one every 8 hours if not getting relief with the benadryl. YEIMY NEIL DO Jan 28, 2018 17:13
[2018-01-28 17:30] VITALS: BP 130/80
[2018-01-28] MEDS ORDERED: BENZTROPINE MESY IM ONE (17:30)
[2018-01-28] MEDS ORDERED: DIAZEPAM 5 MG TAB PO ONE (17:30)
[2018-01-28] MEDS ORDERED: DIA5 PO (17:39)
== END 2018-01-28 18:01 | disposition home or self-care (01) ==
LOC: ER 17:18
DX: G24.09 Other drug induced dystonia (principal); T43.595A Adverse effect of other antipsychotics and neuroleptics, initial encounter
CPT/HCPCS: 96372; 99283; A9270; J0515

== ENCOUNTER 2018-02-09 09:18 | Emergency (ER) | payer MEDICARE, MEDICAID ==
[2016-02-16 10:09] VITALS: Wt 123.8 kg
[2018-02-09 10:03] VITALS: BP 119/78
--- NOTE | 2018-02-09 10:23 | ER Report ---
History and Physical Time Seen By MD: 10:23 Hx. of Stated Complaint: pt has been shaky and having a "sensation in my gut" , tired, twitching HPI/ROS 52-year-old male with a chronic history of mood disorder and also diagnosed in the past with schizoaffective disorder. He is currently on Zyprexa. Presents to the emergency department complaining of what he describes as fasciculations as well as anxiety with tremors. He does not exhibit any of this rate now in the emergency department, but states it comes intermittently. No focal neurologic deficits. No weakness. Meds, but states that he has been weaning himself off of his Zyprexa as well as he decided to quit smoking one week ago. No trauma, no fever chills. No chest pain or shortness of breath. He does not describe tardive dyskinesia or a dystonic reaction. He said given his symptoms he decided to go back to smoking earlier this morning. He has not been to his behavior health provider. States he wants to wean his meds because they don't help him with his symptoms. Also admits to feeling mildly depressed, but denies SI or HI. Says he has a plan to reconnect with his behavioral health provider on Sunday. Allergies: Coded Allergies: Haloperidol Lactate (Verified Adverse Reaction, Severe, LARYNGOSPASM, 01/28) niacin (Verified Adverse Reaction, Unknown, BODY RASH TO TORSO AND LIMBS, 01/28/18) Home Meds Active Scripts Hydroxyzine Hcl (HYDROXYZINE HCL) 25 Mg Tablet, 25 MG PO 1-2XD for 10 Days, #20 Prov:CAITLIN BLAND MD 02/09/18 Olanzapine (OLANZAPINE) 5 Mg Tablet, 5 MG PO QDAY, #90 TAB 3 Refills Prov:DEJUAN DOSHI MD 06/26/17 Ipratropium [place] 17 Mcg/Act (ATROVENT HFA 17 MCG/ACT) 12.9 Gm Inh, 12.9 GM INH Q4H Y for SHORTNESS OF BREATH, #3 INH 4 Refills Prov:DEJUAN DOSHI MD 05/23/17 Reported Medications Apixaban (ELIQUIS) 5 Mg Tablet, 15 MG PO BID 09/06/17 Acetaminophen (TYLENOL EXTRA STRENGTH) 500 Mg Tablet, 1-2 TAB PO, TAB 03/01/17 Brimonidine Tartrate (ALPHAGAN P) 5 Ml Drops, 1 DROP OU BID 12/13/14 Discontinued Scripts Diazepam (VALIUM) 5 Mg Tablet, 5 MG PO Q8H Y for MUSCLE SPASMS, #10 TAB Prov:YEIMY NEIL DO 01/28/18 Reviewed Nurses Notes: Yes Old Medical Records Reviewed: Yes Hx Smoking: Yes (1 PPWEEK X37YRS) Smoking Status: Current: Every Day Smoker Exposure to Second Hand Smoke?: No Hx Substance Use Disorder: No Hx Alcohol Use: No Constitutional Vital Sign - Last 24 Hours 02/09/18 10:03 Temp 97.7 Pulse 87 Resp 16 B/P (MAP) 119/78 Pulse Ox 95 O2 Delivery Room Air Physical Exam General Appearance: The patient is alert, has no immediate need for airway protection and no current signs of toxicity. Eyes: Pupils equal and round no injection. Respiratory: Chest is non tender, lungs are clear to auscultation. Cardiac: regular rate and rhythm Gastrointestinal: Abdomen is soft and non tender, no masses, bowel sounds normal. Neck: Neck is supple and non tender. Extremities have full range of motion and are non tender. Skin: No rashes or lesions. DIFFERENTIAL DIAGNOSIS: After history and physical exam differential diagnosis was considered for tardive dyskinesia, dystonic reaction, fasciculations, anxiety, withdrawal from Zyprexa and nicotine. Medical Decision Making ED Course/Re-evaluation ED Course Patient appears well and in no apparent distress. He has a normal neuro exam, and there is no evidence of fasciculations or tremors at this time. I discussed with him at length that he should not self DC his Zyprexa, and he agreed that he will call his mental health provider on Sunday. He will restart his Zyprexa. He also states he is going to start smoking again, and we will try to quit again under the guidance of his behavioral health provider. I did give him a dose of Atarax for what seemed to be anxiety and possibly mild dystonia. He states that the Atarax made him symptoms improve. I gave him a prescription of Atarax just for the week until he can follow-up with his primary care provider. Decision to Disposition Date: Feb 09, 2018 Decision to Disposition Time: 12:03 Depart Departure Latest Vital Signs Vital Signs Date Time Temp Pulse Resp B/P (MAP) Pulse Ox O2 Delivery O2 Flow Rate FiO2 02/09/18 10:03 97.7 87 16 119/78 95 Room Air Impression: Primary Impression: Twitching Disposition: HOME OR SELF-CARE Referrals: DEJUAN DOSHI MD (PCP) New Scripts Hydroxyzine Hcl (HYDROXYZINE HCL) 25 Mg Tablet 25 MG PO 1-2XD for 10 Days, #20 Prov: CAITLIN BLAND MD 02/09/18 Patient Instructions: Hydroxyzine (By mouth) CAITLIN BLAND MD Feb 09, 2018 10:23
[2018-02-09] MEDS ORDERED: hydrOXYzine 25 MG TAB PO ONE (10:45)
[2018-02-09] MEDS ORDERED: HYDR-4225 PO (12:38)
== END 2018-02-09 12:41 | disposition home or self-care (01) ==
LOC: ER 09:47
DX: R25.3 Fasciculation (principal)
CPT/HCPCS: 99282; A9270

== ENCOUNTER 2018-02-27 13:12 | Emergency (ER) | payer MEDICARE, MEDICAID ==
[2016-02-16 10:09] VITALS: Wt 123.8 kg
[~2018-02-27 13:12] MED LIST changes: +HYDR-4225 PO; -TRAZ-163 PO; +TRAZ100T31 PO
[2018-02-27] MEDS ORDERED: DIPH-740 PO (13:23)
[2018-02-27] MEDS ORDERED: APIX2.5T PO (13:23)
--- NOTE | 2018-02-27 14:00 | EKG ---
FACILITY: [facility] PATIENT NAME: BLANCO RUFFIN : [id number] MR: [id number] V: [id number] EXAM DATE: ORDERING PHYSICIAN: STEW GREGG TECHNOLOGIST: SWETA Test Reason : TROUBLE SWOLLOWING Blood Pressure : / mmHG Vent. Rate : 078 BPM Atrial Rate : 078 BPM P-R Int : 166 ms QRS Dur : 106 ms QT Int : 372 ms P-R-T Axes : 064 041 052 degrees QTc Int : 424 ms Normal sinus rhythm Incomplete right bundle branch block Borderline ECG When compared with ECG of 06-SEP-2017 13:27, No significant change was found Referred By: CRISTINO Confirmed By:
--- NOTE | 2018-02-27 14:07 | ER Report ---
History and Physical Time Seen By MD: 13:11 Hx. of Stated Complaint: pt reports esophageal spasms and jaw tightness with difficulty swallowing, dizziness and twitching HPI/ROS CHIEF COMPLAINT: trouble swallowing, muscle twitching, worsening diplopia HISTORY OF PRESENT ILLNESS: This is a 52 year old male. He has been having some trouble with muscle twitching recently, feeling generalized weakness as well. He has recently stopped smoking. He has on Zyprexa. He has chronic double vision which has worsened. His eye doctor was thinking that the Zyprexa may have been causing the worsening strabizmus and double vision. He has worsening twitching in his face, arms and legs as well as a significant tremor. He has no focal weakness. No headaches, but muscles feel tight. Symptoms do seem to worsen with stress. He feels like it is difficult to swallow, either with or without food and liquids. No food getting caught. No trouble with bowel or bladder function. Does have some muscle aches and pains. REVIEW OF SYSTEMS: Constitutional: No fever or chills. Eyes: As above, ENT: No sore throat. No congestion. Cardiovascular: No chest pain. No palpitations. Respiratory: No cough. No shortness of breath. Gastrointestinal: No abdominal pain. No nausea or vomiting. Skin: No rashes. Neurological: As above. Allergies: Coded Allergies: Haloperidol Lactate (Verified Adverse Reaction, Severe, LARYNGOSPASM, 01/28) niacin (Verified Adverse Reaction, Unknown, BODY RASH TO TORSO AND LIMBS, 01/28/18) Home Meds Active Scripts Diazepam (VALIUM) 10 Mg Tablet, 10 MG PO Q8H Y for MUSCLE SPASMS, #15 TAB 0 Refills Prov:STEW GREGG MD 02/27/18 Olanzapine (OLANZAPINE) 5 Mg Tablet, 5 MG PO QDAY, #90 TAB 3 Refills Prov:DEJUAN DOSHI MD 06/26/17 Ipratropium [place] 17 Mcg/Act (ATROVENT HFA 17 MCG/ACT) 12.9 Gm Inh, 12.9 GM INH Q4H Y for SHORTNESS OF BREATH, #3 INH 4 Refills Prov:DEJUAN DOSHI MD 05/23/17 Reported Medications Apixaban (ELIQUIS) 2.5 Mg Tablet, 2.5 MG PO BID 02/27/18 Diphenhydramine Hcl (BENADRYL) 25 Mg Capsule, 25 MG PO Q6-8H, CAPSULE 02/27/18 Acetaminophen (TYLENOL EXTRA STRENGTH) 500 Mg Tablet, 1-2 TAB PO, TAB 03/01/17 Brimonidine Tartrate (ALPHAGAN P) 5 Ml Drops, 1 DROP OU BID 12/13/14 Discontinued Reported Medications Apixaban (ELIQUIS) 5 Mg Tablet, 15 MG PO BID 09/06/17 Discontinued Scripts Hydroxyzine Hcl (HYDROXYZINE HCL) 25 Mg Tablet, 25 MG PO 1-2XD for 10 Days, #20 Prov:CAITLIN BLAND MD 02/09/18 Reviewed Nurses Notes: Yes Hx Smoking: Yes (1 PPWEEK X37YRS) Smoking Status: Current: Every Day Smoker Exposure to Second Hand Smoke?: No Hx Substance Use Disorder: No Hx Alcohol Use: No Constitutional Vital Sign - Last 24 Hours 02/27/18 02/27/18 02/27/18 02/27/18 13:17 13:18 13:27 13:30 Temp 97.0 Pulse 81 91 Resp 18 17 B/P (MAP) 121/80 (94) 121/80 143/91 (108) Pulse Ox 95 95 O2 Delivery Room Air 02/27/18 02/27/18 02/27/18 02/27/18 13:42 13:57 14:00 14:27 Pulse 82 80 ??? Resp 10 17 B/P (MAP) 141/83 (102) Pulse Ox 95 02/27/18 02/27/18 02/27/18 02/27/18 14:30 14:42 14:57 15:00 Pulse ? B/P (MAP) ???/??? (1665) ???/??? (1665) 02/27/18 02/27/18 02/27/18 02/27/18 15:05 15:20 15:35 15:40 Pulse ? B/P (MAP) 114/83 (93) 02/27/18 02/27/18 02/27/18 02/27/18 15:50 16:00 16:05 16:20 Pulse 78 79 81 B/P (MAP) 116/85 (95) Pulse Ox 93 92 94 02/27/18 16:24 B/P (MAP) 114/89 (97) Physical Exam General Appearance: The patient is alert. No acute distress. Non-toxic in appearance. Eyes: Pupils are equal, round. Reactive to light. No pallor, injection or icterus. Extraocular movements are intact, but with disconjugate. ENT: Mucous membranes are moist. Normal oral mucosa. Posterior oropharynx is normal. Neck: Supple and non tender. No lymphadenopathy. Respiratory: Lungs are clear to auscultation. There are no retractions or accessory muscle use. Cardiovascular: Regular rate and rhythm. No murmurs, gallops or rubs. Normal capillary refill. No edema. Gastrointestinal: Abdomen is soft and non tender. Nondistended. Normal active bowel sounds. Neurological: Alert and oriented x3. Eyes disconjugate, otherwise normal. Face without weakness or droop, and with normal sensation. Midline tongue and symmetric palate elevation. Extremities with global weakness, significant tremor but no focal weakness. Normal sensation throughout. Skin: Warm and dry. Musculoskeletal: Extremities are nontender. Full range of motion. Some muscle tightness in neck. DIFFERENTIAL DIAGNOSIS: After history and physical exam, differential diagnosis was considered for a patient with some neurologic symptoms of difficulty swallowing, muscle twitching, tremor, and double vision, likely due to stress, but would make sure labs and neuro imaging to rule out other problems. Medical Decision Making Data Points Result Diagram: 02/27/18 1350 02/27/18 1350 Laboratory Hematology Test 02/27/18 13:50 02/27/18 15:35 Red Blood Count 5.44 M/uL (4.00-5.60) Mean Corpuscular Volume 89.0 fL (80.0-96.0) Mean Corpuscular Hemoglobin 31.4 pg (26.0-33.0) Mean Corpuscular Hemoglobin Concent 35.3 g/dL (32.0-36.0) Red Cell Distribution Width 13.0 % (11.5-14.5) Mean Platelet Volume 8.3 fL (7.2-11.1) Neutrophils (%) (Auto) 65.4 % (39.4-72.5) Lymphocytes (%) (Auto) 26.5 % (17.6-49.6) Monocytes (%) (Auto) 5.7 % (4.1-12.4) Eosinophils (%) (Auto) 0.6 % (0.4-6.7) Basophils (%) (Auto) 1.8 % (0.3-1.4) Nucleated RBC Relative Count (auto) 0.1 /100WBC Neutrophils # (Auto) 3.6 K/uL (2.0-7.4) Lymphocytes # (Auto) 1.5 K/uL (1.3-3.6) Monocytes # (Auto) 0.3 K/uL (0.3-1.0) Eosinophils # (Auto) 0.0 K/uL (0.0-0.5) Basophils # (Auto) 0.1 K/uL (0.0-0.1) Nucleated RBC Absolute Count (auto) 0.01 K/uL Erythrocyte Sedimentation Rate 8 mm/HOUR (0-20) Sodium Level 138 mmol/L (137-145) Potassium Level 3.7 mmol/L (3.5-5.0) Chloride Level 105 mmol/L (98-107) Carbon Dioxide Level 21 mmol/L (22-30) Blood Urea Nitrogen 20 mg/dl (9-21) Creatinine 1.10 mg/dl (0.66-1.25) Glomerular Filtration Rate Calc > 60.0 Random Glucose 180 mg/dl (75-110) Calcium Level 9.9 mg/dl (8.4-10.2) Total Bilirubin 0.5 mg/dl (0.2-1.3) Aspartate Amino Transf (AST/SGOT) 33 U/L (0-35) Alanine Aminotransferase (ALT/SGPT) 40 U/L (0-56) Alkaline Phosphatase 74 U/L (0-126) Troponin I < 0.012 ng/ml C-Reactive Protein 0.8 mg/dl (<1.0) Total Protein 7.0 g/dl (6.3-8.2) Albumin 4.5 g/dl (3.5-5.0) Urine Color Yellow Urine Clarity Clear Urine pH 5.0 pH (4.8-9.5) Urine Specific [place] 1.020 Urine Protein Negative mg/dL (NEGATIVE) Urine Glucose (UA) Negative mg/dL (NEGATIVE) Urine Ketones Negative mg/dL (NEGATIVE) Urine Blood Negative (NEGATIVE) Urine Nitrite Negative (NEGATIVE) Urine Bilirubin Negative (NEGATIVE) Urine Urobilinogen Negative mg/dL (0.2-1.9) Urine Leukocyte Esterase Negative (NEGATIVE) Urine RBC <1 /HPF (0-2/HPF) Urine WBC <1 /HPF (0-5/HPF) Urine Squamous Epithelial Cells None /LPF (</=FEW) Urine Bacteria Negative /HPF (NONE-FEW) Urine Mucus None /HPF (NONE-FEW) Chemistry Test 02/27/18 13:50 02/27/18 15:35 White Blood Count 5.6 k/uL (4.5-11.0) Red Blood Count 5.44 M/uL (4.00-5.60) Hemoglobin 17.1 g/dL (14.0-18.0) Hematocrit 48.4 % (42.0-52.0) Mean Corpuscular Volume 89.0 fL (80.0-96.0) Mean Corpuscular Hemoglobin 31.4 pg (26.0-33.0) Mean Corpuscular Hemoglobin Concent 35.3 g/dL (32.0-36.0) Red Cell Distribution Width 13.0 % (11.5-14.5) Platelet Count 214 K/uL (150-450) Mean Platelet Volume 8.3 fL (7.2-11.1) Neutrophils (%) (Auto) 65.4 % (39.4-72.5) Lymphocytes (%) (Auto) 26.5 % (17.6-49.6) Monocytes (%) (Auto) 5.7 % (4.1-12.4) Eosinophils (%) (Auto) 0.6 % (0.4-6.7) Basophils (%) (Auto) 1.8 % (0.3-1.4) Nucleated RBC Relative Count (auto) 0.1 /100WBC Neutrophils # (Auto) 3.6 K/uL (2.0-7.4) Lymphocytes # (Auto) 1.5 K/uL (1.3-3.6) Monocytes # (Auto) 0.3 K/uL (0.3-1.0) Eosinophils # (Auto) 0.0 K/uL (0.0-0.5) Basophils # (Auto) 0.1 K/uL (0.0-0.1) Nucleated RBC Absolute Count (auto) 0.01 K/uL Erythrocyte Sedimentation Rate 8 mm/HOUR (0-20) Glomerular Filtration Rate Calc > 60.0 Calcium Level 9.9 mg/dl (8.4-10.2) Total Bilirubin 0.5 mg/dl (0.2-1.3) Aspartate Amino Transf (AST/SGOT) 33 U/L (0-35) Alanine Aminotransferase (ALT/SGPT) 40 U/L (0-56) Alkaline Phosphatase 74 U/L (0-126) Troponin I < 0.012 ng/ml C-Reactive Protein 0.8 mg/dl (<1.0) Total Protein 7.0 g/dl (6.3-8.2) Albumin 4.5 g/dl (3.5-5.0) Urine Color Yellow Urine Clarity Clear Urine pH 5.0 pH (4.8-9.5) Urine Specific [place] 1.020 Urine Protein Negative mg/dL (NEGATIVE) Urine Glucose (UA) Negative mg/dL (NEGATIVE) Urine Ketones Negative mg/dL (NEGATIVE) Urine Blood Negative (NEGATIVE) Urine Nitrite Negative (NEGATIVE) Urine Bilirubin Negative (NEGATIVE) Urine Urobilinogen Negative mg/dL (0.2-1.9) Urine Leukocyte Esterase Negative (NEGATIVE) Urine RBC <1 /HPF (0-2/HPF) Urine WBC <1 /HPF (0-5/HPF) Urine Squamous Epithelial Cells None /LPF (</=FEW) Urine Bacteria Negative /HPF (NONE-FEW) Urine Mucus None /HPF (NONE-FEW) Urinalysis Test 02/27/18 15:35 Urine Color Yellow Urine Clarity Clear Urine pH 5.0 pH (4.8-9.5) Urine Specific [place] 1.020 Urine Protein Negative mg/dL (NEGATIVE) Urine Glucose (UA) Negative mg/dL (NEGATIVE) Urine Ketones Negative mg/dL (NEGATIVE) Urine Blood Negative (NEGATIVE) Urine Nitrite Negative (NEGATIVE) Urine Bilirubin Negative (NEGATIVE) Urine Urobilinogen Negative mg/dL (0.2-1.9) Urine Leukocyte Esterase Negative (NEGATIVE) Urine RBC <1 /HPF (0-2/HPF) Urine WBC <1 /HPF (0-5/HPF) Urine Squamous Epithelial Cells None /LPF (</=FEW) Urine Bacteria Negative /HPF (NONE-FEW) Urine Mucus None /HPF (NONE-FEW) EKG/Imaging EKG Interpretation 12 lead EKG: Rhythm: normal sinus rhythm, rate 78 [place]: normal QRS: Incomplete right bundle branch block ST segments: normal Imaging Exam type: CHEST PA AND LAT History: Chest tightness, no chest pain Comparison: March 02, 2017. Findings: Chronic peribronchial thickening again seen throughout the lungs. There is no evidence of acute appearing infiltrates, pleural effusions or overt pulmonary edema. No evidence of a pneumothorax or pneumomediastinum. The cardiac silhouette is normal in size. IMPRESSION: 1. Chronic peribronchial thickening noted bilaterally Report Dictated By: Lavonne Ledesma MD at 02/27/2018 2:40 PM EXAMINATION: MRI Brain without intravenous contrast MRI Brain with intravenous contrast HISTORY: Weakness. Tremor. Difficulty swallowing. COMPARISON: Noncontrast head CT dated 11/15/2017. TECHNIQUE: Multi-planar, multi-sequence brain MRI was performed before and after IV gadolinium. CONTRAST: 15 mL of IV MultiHance FINDINGS: Brain volume: Normal. Sagittal midline structures: Negative. Ventricles: Negative. Acute ischemic changes: None. Hemorrhage: None. Masses / edema: None. Enhancement: Negative. [place]-white: Negative. White matter: Negative. Vessels: Negative. Extra-axial: Negative. Calvarium / scalp: Negative. Skull base: Negative. Visualized sinuses / orbits: Rightward nasal septal deviation. Visualized upper neck: Negative. IMPRESSION: 1. Rightward nasal septal deviation. 2. Otherwise normal brain MRI without and with IV contrast. Report Dictated By: Geremias Moore MD at 02/27/2018 3:34 PM ED Course/Re-evaluation Clinical Indication for ER IV: Hydration, IV Access ED Course Initial evaluation with neurologic changes that are likely stress related, but enough that would recommend MRI. Valium given to help with MRI. Valium helped symptoms as well. MRI negative. Labs unremarkable. Reviewed these with the patient. Limited Valium PRN for the next few days and follow-up with his regular provider. Decision to Disposition Date: Feb 27, 2018 Decision to Disposition Time: 16:20 Depart Departure Latest Vital Signs Vital Signs Date Time Temp Pulse Resp B/P (MAP) Pulse Ox O2 Delivery O2 Flow Rate FiO2 02/27/18 16:24 114/89 (97) 02/27/18 16:20 81 94 02/27/18 13:57 17 02/27/18 13:18 97.0 Room Air Impression: Primary Impression: Tremor Additional Impressions: Muscle spasm Dysphagia Condition: Improved Disposition: HOME OR SELF-CARE Referrals: DEJUAN DOSHI MD (PCP) New Scripts Diazepam (VALIUM) 10 Mg Tablet 10 MG PO Q8H Y for MUSCLE SPASMS, #15 TAB 0 Refills Prov: STEW GREGG MD 02/27/18 Patient Instructions: Dysphagia (ED), Muscle Spasm (ED), Tremors (ED) Additional Instructions: Trial of Valium 10mg, 1/2 to 1 tablet every 8 hours as needed for muscle spasm. Follow-up with Barbie Turner as planned. Problem Qualifiers Additional Impressions: Dysphagia Dysphagia type: unspecified Qualified Codes: R13.10 - Dysphagia, unspecified STEW GREGG MD Feb 27, 2018 14:07
[2018-02-27 14:14] LABS: PLATELET COUNT, AUTOMATED 214 K/uL (150-450)
[2018-02-27] MEDS ORDERED: DIAZEPAM 10 MG TAB PO ONE (14:40)
[2018-02-27] MEDS ORDERED: DIAZEPAM 50 MG/10 ML MDV IVP ONE (14:40)
--- NOTE | 2018-02-27 14:46 | RADIOLOGY IMAGING REPORT ---
[place] [facility] [place] NAME[place] Prudencio Connolly : 1965 MR: [id number] V: [id number] EXAM DATE: ORDERING PHYSICIAN: STEW GREGG TECHNOLOGIST: Location: [facility] Patient: Prudencio Connolly : 1965 Visit/Account:[id number] Date of Sevice: 02/27/2018 Exam type: CHEST PA AND LAT History: Chest tightness, no chest pain Comparison: March 02, 2017. Findings: Chronic peribronchial thickening again seen throughout the lungs. There is no evidence of acute appe aring infiltrates, pleural effusions or overt pulmonary edema. No evidence of a pneumothorax or pneu momediastinum. The cardiac silhouette is normal in size. IMPRESSION: 1. Chronic peribronchial thickening noted bilaterally Report Dictated By: Lavonne Ledesma MD at 02/27/2018 2:40 PM Report E-Signed By: Lavonne Ledesma MD at 02/27/2018 2:42 PM WSN:[email or web address]
[2018-02-27] MEDS ORDERED: GADOBENATE 529MG/1ML 15ML VIAL IVP ONE (14:58)
--- NOTE | 2018-02-27 15:43 | RADIOLOGY IMAGING REPORT ---
FACILITY: [facility] PATIENT NAME: Prudencio Connolly : 1965 MR: [id number] V: [id number] EXAM DATE: ORDERING PHYSICIAN: STEW GREGG TECHNOLOGIST: Location: [facility] - [place], [place] Patient: Prudencio Connolly : 1965 Visit/Account:[id number] Date of Sevice: 02/27/2018 EXAMINATION: MRI Brain without intravenous contrast MRI Brain with intravenous contrast HISTORY: Weakness. Tremor. Difficulty swallowing. COMPARISON: Noncontrast head CT dated 11/15/2017. TECHNIQUE: Multi-planar, multi-sequence brain MRI was performed before and after IV gadolinium. CONTRAST: 15 mL of IV MultiHance FINDINGS: Brain volume: Normal. Sagittal midline structures: Negative. Ventricles: Negative. Acute ischemic changes: None. Hemorrhage: None. Masses / edema: None. Enhancement: Negative. Carson-white: Negative. White matter: Negative. Vessels: Negative. Extra-axial: Negative. Calvarium / scalp: Negative. Skull base: Negative. Visualized sinuses / orbits: Rightward nasal septal deviation. Visualized upper neck: Negative. IMPRESSION: 1. Rightward nasal septal deviation. 2. Otherwise normal brain MRI without and with IV contrast. Report Dictated By: Geremias Moore MD at 02/27/2018 3:34 PM Report E-Signed By: Geremias Moore MD at 02/27/2018 3:38 PM WSN:[id number]
[2018-02-27] MEDS ORDERED: DIAZ-305 PO (16:23)
[2018-02-27 16:24] VITALS: BP 114/89
== END 2018-02-27 16:33 | disposition home or self-care (01) ==
LOC: ER 13:22
DX: R25.1 Tremor, unspecified (principal); M62.838 Other muscle spasm; R13.10 Dysphagia, unspecified
CPT/HCPCS: 70553; 71046; 81001; 84484; 85025; 85651; 86140; 93005; 96374; 99284; A9270; A9577; J3360; 82040; 82247; 82310; 82374; 82435; 82565; 82947; 84075; 84132; 84155; 84295; 84450; 84460; 84520

== ENCOUNTER 2018-03-26 11:35 | Emergency (ER) | payer MEDICARE, MEDICAID ==
[2016-02-16 10:09] VITALS: Wt 123.8 kg
[~2018-03-26 11:35] MED LIST changes: +DIAZ-305 PO
--- NOTE | 2018-03-26 11:55 | ER Report ---
History and Physical Time Seen By MD: 11:55 Hx. of Stated Complaint: Patient is having jaw spasms and difficulty swallowing. States he is having episode where fluid and solids aren't "entering into his stomach". States he awoke with vomit on his pillow and is worried aspiration. Also has nausea and vomitting HPI/ROS CHIEF COMPLAINT: Difficulty swallowing, vomited while sleeping HISTORY OF PRESENT ILLNESS: 53-year-old male patient presents to emergency room with complaint of difficulty swallowing, vomiting while sleeping. Patient states that yesterday he felt pretty good in the morning, and then thoroughly he had a spasm started right around the jaw. He states that seemed to go all the way down into the stomach. He states he tried drinking water, was able to get the water into the stomach. Patient states that he has had burping which is causing the water to her back up. That caused him to spit it out. He did try to eat some potato chips after that. He states that he continued to have difficulty swallowing, stating that he felt like he got stuck. He states that this morning he was able to drink coffee without any problems, he is able to either plan without any difficulties. Patient does have a history of esophageal spasms. He states he was on Valium for a while which seemed to help. He states his mental health provider stop that. States he been doing fine for quite some time until recently. He states that he is concerned that he may have aspirated, stating that the niece woke up this morning there was vomit on the pillow of potato chips daily. He does have a history of aspiration the past for his woke up after aspirating on saliva. REVIEW OF SYSTEMS: Respiratory: No cough, no dyspnea. Cardiovascular: No chest pain, no palpitations. Gastrointestinal: As noted above Musculoskeletal: No back pain. Allergies: Coded Allergies: Haloperidol Lactate (Verified Adverse Reaction, Severe, LARYNGOSPASM, 03/26) niacin (Verified Adverse Reaction, Unknown, BODY RASH TO TORSO AND LIMBS, 03/26/18) Home Meds Active Scripts Sucralfate (CARAFATE) 1 Gm Tablet, 1 GM PO QID, #60 TAB Take before meals and at bedtime. Crush the tablet and mix with water before taking. Prov:SAAD MUÑIZ 03/26/18 Omeprazole (OMEPRAZOLE) 40 Mg Capsule.dr, 40 MG PO QDAY, #30 CAP Prov:SAAD MUÑIZ COLLECTION CLERK 03/26/18 Diazepam (VALIUM) 5 Mg Tablet, 5 MG PO BID Y for SPASMS, #12 TAB Prov:SAAD MUÑIZ COLLECTION CLERK 03/26/18 Olanzapine (OLANZAPINE) 5 Mg Tablet, 5 MG PO QDAY, #90 TAB 3 Refills Prov:DEJUAN DOSHI MD 06/26/17 Ipratropium [place] 17 Mcg/Act (ATROVENT HFA 17 MCG/ACT) 12.9 Gm Inh, 12.9 GM INH Q4H Y for SHORTNESS OF BREATH, #3 INH 4 Refills Prov:DEJUAN DOSHI MD 05/23/17 Reported Medications Apixaban (ELIQUIS) 2.5 Mg Tablet, 2.5 MG PO BID 02/27/18 Diphenhydramine Hcl (BENADRYL) 25 Mg Capsule, 25 MG PO Q6-8H, CAPSULE 02/27/18 Brimonidine Tartrate (ALPHAGAN P) 5 Ml Drops, 1 DROP OU BID 12/13/14 Discontinued Reported Medications Acetaminophen (TYLENOL EXTRA STRENGTH) 500 Mg Tablet, 1-2 TAB PO, TAB 03/01/17 Discontinued Scripts Diazepam (VALIUM) 10 Mg Tablet, 10 MG PO Q8H Y for MUSCLE SPASMS, #15 TAB 0 Refills Prov:STEW GREGG MD 02/27/18 Past Medical/Surgical History Patient has a past medical history of DVT, hyperlipidemia, esophageal spasms, kidney stones, muscle tension, arthritis, right hand fracture, rib fracture, nose fracture, back pain, dysphagia, history of DVTs, depression, anxiety, skin cancer. Patient has surgical history of left wrist surgery, surgery to right ear, surgery for strabismus of the left eye. Patient has a family medical history of cancer, CAD, stroke, psychiatric problems. Reviewed Nurses Notes: Yes Hx Smoking: Yes (1 PPWEEK X37YRS) Smoking Status: Current: Every Day Smoker Exposure to Second Hand Smoke?: No Hx Substance Use Disorder: No Hx Alcohol Use: No Constitutional Vital Sign - Last 24 Hours 03/26/18 03/26/18 03/26/18 03/26/18 11:40 11:47 11:50 12:00 Temp 97.7 Pulse 87 84 Resp 16 B/P (MAP) 124/95 129/83 (98) 111/87 (95) Pulse Ox 94 94 03/26/18 03/26/18 03/26/18 03/26/18 12:05 12:20 12:30 12:35 Pulse 83 ? B/P (MAP) 119/84 (96) Pulse Ox 94 96 03/26/18 03/26/18 03/26/18 03/26/18 12:50 13:00 13:05 13:11 Temp 97.6 Pulse 74 71 B/P (MAP) 107/74 (85) Pulse Ox 91 94 Physical Exam General Appearance: The patient is alert, has no immediate need for airway protection and no current signs of toxicity. ENT: Tympanic membranes are pearly-champion, auditory canals are patent, mucous membranes are moist. Respiratory: Chest is non tender, lungs are clear to auscultation. Cardiac: regular rate and rhythm Gastrointestinal: Abdomen is soft and non tender, no masses, bowel sounds normal. Musculoskeletal: Neck: Neck is supple and non tender. Extremities have full range of motion and are non tender. Skin: No rashes or lesions. DIFFERENTIAL DIAGNOSIS: After history and physical exam differential diagnosis was considered for esophageal spasm, respiration. Medical Decision Making EKG/Imaging Imaging 2 VIEWS CHEST INDICATION: Vomiting and sleepy. Possible aspiration. History of smoking. COMPARISON: 02/27/2018. FINDINGS: Cardiomediastinal silhouette and pulmonary vessels within normal limits. There is no focal infiltrate or lobar consolidation. There is no pneumothorax or pleural effusion. No nodule. Upper abdomen is unremarkable. No acute bony abnormality. IMPRESSION: 1. No acute cardiopulmonary process. Report Dictated By: Benjamin Arreola at 03/26/2018 12:42 PM Report E-Signed By: Benjamin Arreola at 03/26/2018 12:44 PM ED Course/Re-evaluation ED Course Patient was admitted to exam room, history and physical were obtained. Differential diagnoses were considered. On examination lungs are clear, heart is regular, abdomen soft nontender. With patient's complaint of possibly aspirating in the middle the night a chest x-ray was done. There was read by the radiologist as normal. I discussed the findings with the patient. I do believe that the patient is likely having esophageal spasms, which is making it difficult for him to swallow. We will go ahead and treat him with a limited supply of Valium. I would like him to go ahead and follow-up with his primary care provider to see if they would like to go ahead and continue that. Patient states he's been on them past and has helped with his esophageal spasms. If there is no improvement with that and we can go ahead and try a calcium channel larisa again that should be done through his primary care provider. Patient states that if there is not any improvement. Also like to go ahead and follow- up with his developer [employer] in [place]. I believe that would be an appropriate next step as well. We will go ahead and treat his reflux disease complaining of some burning in his epigastric region, will be started on omeprazole 40 mg daily as well as Carafate 4 times a day. Patient verbalized understanding and agreement with plan. Decision to Disposition Date: Mar 26, 2018 Decision to Disposition Time: 13:04 Depart Departure Latest Vital Signs Vital Signs Date Time Temp Pulse Resp B/P (MAP) Pulse Ox O2 Delivery O2 Flow Rate FiO2 03/26/18 13:11 97.6 03/26/18 13:05 71 94 03/26/18 13:00 107/74 (85) 03/26/18 11:40 16 Impression: Primary Impression: Esophageal spasm Additional Impression: GERD (gastroesophageal reflux disease) Condition: Improved Disposition: HOME OR SELF-CARE Referrals: DEJUAN DOSHI MD (PCP) New Scripts Sucralfate (CARAFATE) 1 Gm Tablet 1 GM PO QID, #60 TAB Take before meals and at bedtime. Crush the tablet and mix with water before taking. Prov: SAAD MUÑIZ 03/26/18 Omeprazole (OMEPRAZOLE) 40 Mg Capsule.dr 40 MG PO QDAY, #30 CAP Prov: SAAD MUÑIZ 03/26/18 Diazepam (VALIUM) 5 Mg Tablet 5 MG PO BID Y for SPASMS, #12 TAB Prov: SAAD MUÑIZ 03/26/18 Patient Instructions: Esophageal Spasm (ED) Additional Instructions: Increase fluid intake. Get plenty of rest. Limit activity by how you feel. Take the medication as directed. Follow up with your primary care provider in the next 3-5 days. Return to the ER if condition worsens. Problem Qualifiers Additional Impression: GERD (gastroesophageal reflux disease) Esophagitis presence: with esophagitis Qualified Codes: K21.0 - Gastro- esophageal reflux disease with esophagitis SAAD MUÑIZ Mar 26, 2018 11:55
--- NOTE | 2018-03-26 12:48 | RADIOLOGY IMAGING REPORT ---
FACILITY: [facility] PATIENT NAME: Prudencio Connolly : 1965 MR: [id number] V: [id number] EXAM DATE: ORDERING PHYSICIAN: SAAD MUÑIZ TECHNOLOGIST: Location: [facility] - [place] Patient: Prudencio Connolly : 1965 Visit/Account:[id number] Date of Sevice: 03/26/2018 2 VIEWS CHEST INDICATION: Vomiting and sleepy. Possible aspiration. History of smoking. COMPARISON: 02/27/2018. FINDINGS: Cardiomediastinal silhouette and pulmonary vessels within normal limits. There is no focal infiltrate or lobar consolidation. There is no pneumothorax or pleural effusion. No nodule. Upper abdomen is unremarkable. No acute bony abnormality. IMPRESSION: 1. No acute cardiopulmonary process. Report Dictated By: Benjamin Arreola at 03/26/2018 12:42 PM Report E-Signed By: Benjamin Arreola at 03/26/2018 12:44 PM WSN:[id number]
[2018-03-26 13:00] VITALS: BP 107/74
[2018-03-26] MEDS ORDERED: SUCR1TAB85 PO (13:02)
[2018-03-26] MEDS ORDERED: OMEP40CA48 PO (13:02)
[2018-03-26] MEDS ORDERED: DIA5 PO (13:02)
== END 2018-03-26 13:12 | disposition home or self-care (01) ==
LOC: ER 12:04
DX: K22.4 Dyskinesia of esophagus (principal); K21.0 Gastro-esophageal reflux disease with esophagitis
CPT/HCPCS: 71046; 99283

== ENCOUNTER → 2018-04-22 | Outpatient (CLI) | payer MEDICARE, MEDICAID ==
[2016-02-16 10:09] VITALS: BMI 33.1
[~2018-04-22] MED LIST changes: +OLAN2.5T3 PO; +OMEP40CA48 PO; +SUCR1TAB85 PO
== END ==
LOC: LAB 04-18 13:06
PROVIDERS: ATTEND Emergency Medicine
DX: R73.03 Prediabetes (principal); E66.9 Obesity, unspecified
CPT/HCPCS: 36415; 82465; 83036; 83718; 84478

== ENCOUNTER 2018-05-24 22:31 | Emergency (ER) | payer MEDICARE, MEDICAID ==
[2016-02-16 10:09] VITALS: Wt 123.8 kg
[2018-05-24 22:33] VITALS: BP 148/85
--- NOTE | 2018-05-24 22:37 | ER Report ---
History and Physical Time Seen By MD: 22:36 HPI/ROS CHIEF COMPLAINT: Abdominal tightness, slow heart rate HISTORY OF PRESENT ILLNESS: 83-year-old male brought in by EMS from home complaining of abdominal tightness. Patient states she's been referred down to [place] for evaluation of achalasia. He supposed to have GI pressure studies performed. Patient tonight, noted that his symptoms were worse. He was having some nausea. He was able to feel is pulsatile note that was quite slow. He did not feel dizzy or lightheaded. He denies shortness of breath or chest pain. Patient is currently undergoing treatment for GERD. REVIEW OF SYSTEMS: Respiratory: No cough, no dyspnea. Cardiovascular: No chest pain, no palpitations. Gastrointestinal: As above Musculoskeletal: No back pain. Allergies: Coded Allergies: Haloperidol Lactate (Verified Adverse Reaction, Severe, LARYNGOSPASM, 05/24/18) niacin (Verified Adverse Reaction, Unknown, BODY RASH TO TORSO AND LIMBS, 05/24/18) Home Meds Active Scripts Amoxicillin 500 Mg Tab (AMOXICILLIN 500 MG TAB) 500 Mg Tablet, 1 TAB PO Q12H, #20 TAB Prov:DEJUAN DOSHI MD 05/16/18 Omeprazole (OMEPRAZOLE) 40 Mg Capsule.dr, 40 MG PO QDAY, #30 CAP 2 Refills Prov:DEJUAN DOSHI MD 04/18/18 Diazepam (VALIUM) 5 Mg Tablet, 5 MG PO BID PRN for SPASMS, #12 TAB Prov:SAAD MUÑIZ UG DESIGNER 03/26/18 Ipratropium [place] 17 Mcg/Act (ATROVENT HFA 17 MCG/ACT) 12.9 Gm Inh, 12.9 GM IN H Q4H PRN for SHORTNESS OF BREATH, #3 INH 4 Refills Prov:DEJUAN DOSHI MD 05/23/17 Reported Medications Olanzapine (OLANZAPINE) 2.5 Mg Tablet, 2.5 MG PO QDAY 04/18/18 Apixaban (ELIQUIS) 2.5 Mg Tablet, 2.5 MG PO BID 02/27/18 Brimonidine Tartrate (ALPHAGAN P) 5 Ml Drops, 1 DROP OU BID 12/13/14 Reviewed Nurses Notes: Yes Old Medical Records Reviewed: Yes Hx Smoking: Yes (1 PPWEEK X37YRS) Smoking Status: Current: Every Day Smoker Exposure to Second Hand Smoke?: No Hx Substance Use Disorder: No Hx Alcohol Use: No Constitutional Vital Sign - Last 24 Hours 05/24/18 22:33 Temp 98.0 Pulse 38 Resp 14 B/P (MAP) 148/85 Pulse Ox 94 O2 Delivery Room Air Physical Exam Vital signs stable, notable bradycardia with a rate at 37-39, blood pressure is elevated and not hypotensive. Pulse ox is normal. General Appearance: The patient is alert, has no immediate need for airway protection and no current signs of toxicity. Alert and oriented 3, no acute distress HEENT: Pupils equal and round no injection. Oropharynx without redness or exudate, mucous. Membranes are moist Respiratory: Chest is non tender, lungs are clear to auscultation. Cardiac: regular rate and rhythm. Bradycardic Gastrointestinal: Abdomen is soft and non tender, no masses, bowel sounds normal. Musculoskeletal: Neck: Neck is supple and non tender. Extremities have full range of motion and are non tender. Skin: No rashes or lesions. DIFFERENTIAL DIAGNOSIS: After history and physical exam differential diagnosis was considered for abdominal pain including but not limited to appendicitis, cholecystitis, gastritis and urinary tract infection. Sinus bradycardia, heart block Medical Decision Making Data Points Result Diagram: 05/24/18222705/24/182227 Laboratory Hematology Test 05/24/18 22:28 Red Blood Count 4.76 M/uL (4.00-5.60) Mean Corpuscular Volume 87.4 fL (80.0-96.0) Mean Corpuscular Hemoglobin 30.3 pg (26.0-33.0) Mean Corpuscular Hemoglobin Concent 34.7 g/dL (32.0-36.0) Red Cell Distribution Width 13.3 % (11.5-14.5) Mean Platelet Volume 7.7 fL (7.2-11.1) Neutrophils (%) (Auto) 39.9 % (39.4-72.5) Lymphocytes (%) (Auto) 52.6 % (17.6-49.6) Monocytes (%) (Auto) 5.7 % (4.1-12.4) Eosinophils (%) (Auto) 1.3 % (0.4-6.7) Basophils (%) (Auto) 0.5 % (0.3-1.4) Nucleated RBC Relative Count (auto) 0.0 /100WBC Neutrophils # (Auto) 2.7 K/uL (2.0-7.4) Lymphocytes # (Auto) 3.6 K/uL (1.3-3.6) Monocytes # (Auto) 0.4 K/uL (0.3-1.0) Eosinophils # (Auto) 0.1 K/uL (0.0-0.5) Basophils # (Auto) 0.0 K/uL (0.0-0.1) Nucleated RBC Absolute Count (auto) 0.00 K/uL Sodium Level 140 mmol/L (137-145) Potassium Level 3.7 mmol/L (3.5-5.0) Chloride Level 107 mmol/L (98-107) Carbon Dioxide Level 23 mmol/L (22-30) Blood Urea Nitrogen 12 mg/dl (9-21) Creatinine 1.10 mg/dl (0.66-1.25) Glomerular Filtration Rate Calc > 60.0 Random Glucose 97 mg/dl (75-110) Calcium Level 9.9 mg/dl (8.4-10.2) Total Bilirubin 0.3 mg/dl (0.2-1.3) Aspartate Amino Transf (AST/SGOT) 41 U/L (0-35) Alanine Aminotransferase (ALT/SGPT) 71 U/L (0-56) Alkaline Phosphatase 51 U/L (0-126) Troponin I < 0.012 ng/ml B-Type Natriuretic Peptide 222 pg/ml (0-100) Total Protein 6.5 g/dl (6.3-8.2) Albumin 3.9 g/dl (3.5-5.0) Lipase 165 U/L (23-300) Chemistry Test 05/24/18 22:28 White Blood Count 6.8 k/uL (4.5-11.0) Red Blood Count 4.76 M/uL (4.00-5.60) Hemoglobin 14.4 g/dL (14.0-18.0) Hematocrit 41.6 % (42.0-52.0) Mean Corpuscular Volume 87.4 fL (80.0-96.0) Mean Corpuscular Hemoglobin 30.3 pg (26.0-33.0) Mean Corpuscular Hemoglobin Concent 34.7 g/dL (32.0-36.0) Red Cell Distribution Width 13.3 % (11.5-14.5) Platelet Count 204 K/uL (150-450) Mean Platelet Volume 7.7 fL (7.2-11.1) Neutrophils (%) (Auto) 39.9 % (39.4-72.5) Lymphocytes (%) (Auto) 52.6 % (17.6-49.6) Monocytes (%) (Auto) 5.7 % (4.1-12.4) Eosinophils (%) (Auto) 1.3 % (0.4-6.7) Basophils (%) (Auto) 0.5 % (0.3-1.4) Nucleated RBC Relative Count (auto) 0.0 /100WBC Neutrophils # (Auto) 2.7 K/uL (2.0-7.4) Lymphocytes # (Auto) 3.6 K/uL (1.3-3.6) Monocytes # (Auto) 0.4 K/uL (0.3-1.0) Eosinophils # (Auto) 0.1 K/uL (0.0-0.5) Basophils # (Auto) 0.0 K/uL (0.0-0.1) Nucleated RBC Absolute Count (auto) 0.00 K/uL Glomerular Filtration Rate Calc > 60.0 Calcium Level 9.9 mg/dl (8.4-10.2) Total Bilirubin 0.3 mg/dl (0.2-1.3) Aspartate Amino Transf (AST/SGOT) 41 U/L (0-35) Alanine Aminotransferase (ALT/SGPT) 71 U/L (0-56) Alkaline Phosphatase 51 U/L (0-126) Troponin I < 0.012 ng/ml B-Type Natriuretic Peptide 222 pg/ml (0-100) Total Protein 6.5 g/dl (6.3-8.2) Albumin 3.9 g/dl (3.5-5.0) Lipase 165 U/L (23-300) EKG/Imaging EKG Interpretation 12 lead EK Rhythm: Sinus bradycardia, rate 37 bpm [place]: normal QRS: normal ST segments: normal, comparison to previous EKG dated 02/27/18, no significant morphologic change. Patient's previous heart rate was 78 bpm Imaging X-ray: Single view portable chest x-ray was obtained. I viewed the images myself on the PACS system. My interpretation of the images is: Infiltrate, no effusion, normal mediastinum., Comparison to previous EKG 03/26/18, no signif icant change. The radiologist interpretation had no clinically significant variation from this interpretation. ED Course/Re-evaluation Clinical Indication for ER IV: IV Access ED Course Patient was minute to an examination room. H&P was done. The differential diagnoses was considered. Patient on the child monitor shows bradycardia, rate 39 bpm. An EKG is performed to document the rhythm. His EKG shows no significant morphologic change other than the rate is very slow at 39 bpm. Patient has a lot of GI symptoms. His post to be undergoing evaluation by GI specialty. I think he is having excessive vagal stimulation which is causing bradycardia. Patient was given atropine 1 mg IV with improvement of his rate into the 80s. Diagnostic evaluation shows normal EKG, troponin, and laboratory studies. Patient is advised to continue to follow up with GI specialist as he had planned. Decision to Disposition Date: May 24, 2018 Decision to Disposition Time: 23:34 Depart Departure Latest Vital Signs Vital Signs Date Time Temp Pulse Resp B/P (MAP) Pulse Ox O2 Delivery O2 Flow Rate FiO2 05/24/18 22:33 98.0 38 14 148/85 94 Room Air Impression: Primary Impression: Epigastric discomfort Additional Impressions: Bradycardia GERD (gastroesophageal reflux disease) Schizoaffective disorder Generalized anxiety disorder Condition: Improved Disposition: HOME OR SELF-CARE Referrals: DEJUAN DOSHI MD (PCP) Patient Instructions: Bradycardia (ED), Gastroesophageal Reflux Disease (ED) Additional Instructions: Follow-up with your primary care physician and the GI specialist as recommended Problem Qualifiers Additional Impressions: GERD (gastroesophageal reflux disease) Esophagitis presence: esophagitis presence not specified Qualified Codes: K21.9 - Gastro-esophageal reflux disease without esophagitis Schizoaffective disorder Schizoaffective disorder type: unspecified Qualified Codes: F25.9 - Schizoaffective disorder, unspecified HAIR FLOWER DO May 24, 2018 22:37
[2018-05-24 22:46] LABS: PLATELET COUNT, AUTOMATED 204 K/uL (150-450)
[2018-05-24] MEDS ORDERED: ATROPINE SUL 0.1MG/ML 10ML SYR IVP ONE (22:50)
--- NOTE | 2018-05-24 23:09 | EKG ---
FACILITY: [facility] PATIENT NAME: BLANCO RUFFIN : [id number] MR: [id number] V: [id number] EXAM DATE: ORDERING PHYSICIAN: HAIR FLOWER TECHNOLOGIST: ANGELA Test Reason : CHEST TIGHTNESS Blood Pressure : / mmHG Vent. Rate : 037 BPM Atrial Rate : 037 BPM P-R Int : 174 ms QRS Dur : 110 ms QT Int : 482 ms P-R-T Axes : 060 043 047 degrees QTc Int : 378 ms Marked sinus bradycardia Incomplete right bundle branch block Abnormal ECG When compared with ECG of 27-FEB-2018 13:47, Vent. rate has decreased BY 41 BPM Confirmed by MAXIMILIANO LINN ([id number]) on 05/25/2018 6:44:53 AM Referred By: CHING Confirmed By:MAXIMILIANO LINN
[2018-05-24] MEDS ORDERED: EMS NS 0.9%(*) 1000 ML BAG 1,000 ML IV ONE (23:15)
--- NOTE | 2018-05-24 23:32 | RADIOLOGY IMAGING REPORT ---
FACILITY: [facility] PATIENT NAME: Prudencio Connolly : 1965 MR: [id number] V: [id number] EXAM DATE: ORDERING PHYSICIAN: HAIR FLOWER TECHNOLOGIST: Location: [facility] Patient: Prudencio Connolly : 1965 Visit/Account:[id number] Date of Sevice: 05/24/2018 CHEST SINGLE AP HISTORY: Chest pain. COMPARISON: 03/26/2018. FINDINGS: Lines/tubes: None. Lungs/pleura: Negative. Heart: Negative. Mediastinum: Negative. Bony structures/body wall: Negative. IMPRESSION: No acute cardiopulmonary process. Report Dictated By: Geremias Moore MD at 05/24/2018 11:26 PM Report E-Signed By: Geremias Moore MD at 05/24/2018 11:28 PM [id number]
== END 2018-05-24 23:50 | disposition home or self-care (01) ==
LOC: ER 23:40
DX: K21.9 Gastro-esophageal reflux disease without esophagitis (principal); F25.9 Schizoaffective disorder, unspecified; R10.13 Epigastric pain; R00.1 Bradycardia, unspecified; F41.9 Anxiety disorder, unspecified; R07.89 Other chest pain; I45.10 Unspecified right bundle-branch block
CPT/HCPCS: 71045; 83690; 83880; 84484; 85025; 93005; 96361; 96374; 99284; J0461; 82040; 82247; 82310; 82374; 82435; 82565; 82947; 84075; 84132; 84155; 84295; 84450; 84460; 84520

== ENCOUNTER → 2018-05-24 | Outpatient (CLI) | payer MEDICARE, MEDICAID ==
[2016-02-16 10:09] VITALS: BMI 33.1
[~2018-05-24] MED LIST changes: -HYDR-4309 PO; +HYDR-653 PO
== END ==
LOC: AMB 22:18
PROVIDERS: ATTEND Nurse Practitioner
DX: R10.84 Generalized abdominal pain (principal); I49.8 Other specified cardiac arrhythmias
CPT/HCPCS: A0425; A0427

== ENCOUNTER → 2018-05-27 | Outpatient (CLI) | payer MEDICARE, MEDICAID ==
[2016-02-16 10:09] VITALS: BMI 33.1
--- NOTE | 2018-05-28 16:39 | RT HOLTER TEST ---
[facility] PATIENT NAME: BLANCO RUFFNI : [id number] MR: [id number] V: [id number] EXAM DATE: ORDERING PHYSICIAN: DEJUAN DOSHI TECHNOLOGIST: SWETA Hook-up date: 2018-05-27 11:28:00 Duration: 23:25:00 Test Indications: TOM Medications: SEE DIARY EVENTS 57296 QRS complexes 1 Ventricular ectopics which represent <1 % of total QRS comp. 38 Supraventricular ectopics which represent <1 % of total QRS comp. * Paced QRS complexes which represent % of total QRS comp. VENTRICULAR ECTOPY 1 Isolated 0 Bigeminal Cycles 0 Couplets 0 Runs 0 Beats in Runs * Beats LONGEST at * BPM at :: -- * Beats FASTEST at * BPM at :: -- SUPRAVENTRICULAR ECTOPY 21 Isolated 3 Couplets 2 Runs 11 Beats in Runs 7 Beats LONGEST at 144 BPM at 16:19:26 2018-05-27 7 Beats FASTEST at 144 BPM at 16:19:26 2018-05-27 HEART RATES 34 MIN at 02:00:32 2018-05-28 59 AVG 96 MAX at 11:44:24 2018-05-27 LONGEST RR 2.000 secs at 02:00:32 2018-05-28 S-T LEVELS Channel 1 -12.800 mm MIN at 11:28:00 2018-05-27 -12.800 mm MAX at 11:28:00 2018-05-27 Channel 2 -12.800 mm MIN at 11:28:00 2018-05-27 -12.800 mm MAX at 11:28:00 2018-05-27 Channel 3 -12.800 mm MIN at 11:28:00 2018-05-27 -12.800 mm MAX at 11:28:00 2018-05-27 Sinus rhythm Premature atrial complexes Premature supraventricular complexes Premature ventricular complexes Marked sinus bradycardia Confirmed by MAXIMILIANO LINN ([id number]) on 05/28/2018 4:39:30 PM Referred By: Overread By: MAXIMILIANO LINN
== END ==
LOC: RESP 10:52
PROVIDERS: ATTEND Emergency Medicine
DX: R00.1 Bradycardia, unspecified (principal)
CPT/HCPCS: 93225; 93226

== ENCOUNTER → 2018-06-10 | Outpatient (CLI) | payer MEDICARE, MEDICAID ==
[2016-02-16 10:09] VITALS: BMI 33.1
== END ==
LOC: LAB 16:26
PROVIDERS: ATTEND Emergency Medicine
DX: R00.1 Bradycardia, unspecified (principal)
CPT/HCPCS: 36415; 84443

== ENCOUNTER → 2018-06-18 | Outpatient (CLI) | payer MEDICARE, MEDICAID ==
[2016-02-16 10:09] VITALS: BMI 33.1
== END ==
LOC: US 00:50
PROVIDERS: ATTEND Emergency Medicine
DX: I07.1 Rheumatic tricuspid insufficiency (principal); I34.0 Nonrheumatic mitral (valve) insufficiency
CPT/HCPCS: 93306

== ENCOUNTER 2018-06-21 03:55 | Emergency (ER) | payer MEDICARE, MEDICAID ==
[2016-02-16 10:09] VITALS: Wt 123.8 kg
--- NOTE | 2018-06-21 04:01 | ER Report ---
History and Physical Time Seen By MD: 04:01 HPI/ROS CHIEF COMPLAINT: Anxious HISTORY OF PRESENT ILLNESS: 53-year-old male with history of paranoid schizophrenia. Patient presents complaining of increased agitation and thoughts in his head. Patient on numerous occasions and reports that he can hear his neighbors speaking to the ochoa. Tonight he notes a sensation as worse. He is more agitated. He claims he took an extra Zyprexa 5 mg without improvement. She denies suicidal ideation. REVIEW OF SYSTEMS: Respiratory: No cough, no dyspnea. Cardiovascular: No chest pain, no palpitations. Gastrointestinal: No vomiting, no abdominal pain. Musculoskeletal: No back pain. Allergies: Coded Allergies: Haloperidol Lactate (Verified Adverse Reaction, Severe, LARYNGOSPASM, 05/24/18) niacin (Verified Adverse Reaction, Unknown, BODY RASH TO TORSO AND LIMBS, 05/24/18) Home Meds Active Scripts Omeprazole (OMEPRAZOLE) 40 Mg Capsule.dr, 40 MG PO QDAY, #30 CAP 2 Refills Prov:DEJUAN DOSHI MD 04/18/18 Ipratropium [place] 17 Mcg/Act (ATROVENT HFA 17 MCG/ACT) 12.9 Gm Inh, 12.9 GM INH Q4H PRN for SHORTNESS OF BREATH, #3 INH 4 Refills Prov:DEJUAN DOSHI MD 05/23/17 Reported Medications Olanzapine (OLANZAPINE) 2.5 Mg Tablet, 2.5 MG PO QDAY 04/18/18 Apixaban (ELIQUIS) 2.5 Mg Tablet, 2.5 MG PO BID 02/27/18 Brimonidine Tartrate (ALPHAGAN P) 5 Ml Drops, 1 DROP OU BID 12/13/14 Reviewed Nurses Notes: Yes Old Medical Records Reviewed: Yes Hx Smoking: Yes (1 PPWEEK X37YRS) Smoking Status: Current: Every Day Smoker Exposure to Second Hand Smoke?: No Hx Substance Use Disorder: No Hx Alcohol Use: No Constitutional Vital Sign - Last 24 Hours 06/21/18 06/21/18 06/21/18 06/21/18 03:59 04:01 04:09 04:10 Temp 96.0 Pulse 67 ??? Resp 18 B/P (MAP) 192/117 192/117 (142) 157/117 (130) Pulse Ox 94 95 O2 Delivery Room Air 06/21/18 06/21/1818 04:20 04:25 04:40 Pulse 76 67 B/P (MAP) 157/108 (124) 141/114 (123) Pulse Ox 92 94 Physical Exam Vital signs stable, afebrile, pulse ox normal General Appearance: The patient is alert, has no immediate need for airway protection and no current signs of toxicity. Skin warm, dry, pink HEENT: Pupils equal and round no injection. Oropharynx no redness or exudate, m ucous members are moist Respiratory: Chest is non tender, lungs are clear to auscultation. Cardiac: regular rate and rhythm Gastrointestinal: Abdomen is soft and non tender, no masses, bowel sounds normal. Musculoskeletal: Neck: Neck is supple and non tender. No thyromegaly, no lymphadenopathy Extremities have full range of motion and are non tender. Skin: No rashes or lesions. DIFFERENTIAL DIAGNOSIS: After history and physical exam differential diagnosis was considered for depression including functional and major depression, situational depression, medication side effect, acute schizophrenia, paranoid schizophrenia, drugs and alcohol abuse. Medical Decision Making ED Course/Re-evaluation ED Course Patient was admitted to an examination room. H&P was done. The differential diagnoses was considered. Patient exhibiting signs of acute schizophrenia. Patient denies skipping his meds. Denies drug or alcohol use. Patient's medicated with Ativan 2 mg by mouth and Zyprexa 5 mg by mouth. Patient is requesting to speak with behavioral health services. Patient became upset with the [employer] [facility] tech admission and left the emergency department. Decision to Disposition Date: Jun 21, 2018 Decision to Disposition Time: 04:49 Depart Departure Latest Vital Signs Vital Signs Date Time Temp Pulse Resp B/P (MAP) Pulse Ox O2 Delivery O2 Flow Rate FiO2 06/21/18 04:40 67 141/114 (123) 94 06/21/18 03:59 96.0 18 Room Air Impression: Primary Impression: Schizoaffective disorder Additional Impression: Anxiety Condition: Condition Unchanged Disposition: AGAINST MED ADV / DISCONT CARE Referrals: DEJUAN DOSHI MD (PCP) Problem Qualifiers Primary Impression: Schizoaffective disorder Schizoaffective disorder type: unspecified Qualified Codes: F25.9 - Schizoaffective disorder, unspecified HAIR FLOWER DO Jun 21, 2018 04:01
[2018-06-21] MEDS ORDERED: LORazepam 1 MG TAB PO ONE (04:15)
[2018-06-21] MEDS ORDERED: OLANZapine ZYDIS ODT 5MG TABDP PO ONE (04:15)
[2018-06-21 04:40] VITALS: BP 141/114
== END 2018-06-21 04:50 | disposition left against medical advice (07) ==
LOC: ER 04:15
DX: F25.9 Schizoaffective disorder, unspecified (principal); F41.9 Anxiety disorder, unspecified
CPT/HCPCS: 99283; A9270

== ENCOUNTER 2018-06-21 16:42 | Emergency (ER) | payer MEDICARE, MEDICAID ==
[2016-02-16 10:09] VITALS: Wt 123.8 kg
[2018-06-21 17:29] VITALS: BP 132/93
--- NOTE | 2018-06-21 17:54 | ER Report ---
History and Physical Time Seen By MD: 17:31 Hx. of Stated Complaint: c/o L calf pain x 2 days with hx of prior DVT (ARSALAN BLAND MD) HPI/ROS CHIEF COMPLAINT: Leg swelling HISTORY OF PRESENT ILLNESS: Patient has history of dvt x 3. States he's had 2 d of left calf swlling that feels like prior dvt. He has marked the spot of the swelling and pain. He notes he is on zyprexa and smokes tobac, no recent travel or injuries. No cp, sob, fever, chills REVIEW OF SYSTEMS: Constitutional: No fever, no chills. Eyes: No discharge. ENT: No sore throat. Cardiovascular: No chest pain, no palpitations. Respiratory: No cough, no shortness of breath. Gastrointestinal: No abdominal pain, no vomiting. Genitourinary: no dysuria Musculoskeletal: No back pain. Skin: above Neurological: No headache. (ARSALAN BLAND MD) Allergies: Coded Allergies: Haloperidol Lactate (Verified Adverse Reaction, Severe, LARYNGOSPASM, 06/21/18) niacin (Verified Adverse Reaction, Unknown, BODY RASH TO TORSO AND LIMBS, 06/21/18) Home Meds Active Scripts Omeprazole (OMEPRAZOLE) 40 Mg Capsule.dr, 40 MG PO QDAY, #30 CAP 2 Refills Prov:DEJUAN DOSHI MD 04/18/18 Ipratropium [place] 17 Mcg/Act (ATROVENT HFA 17 MCG/ACT) 12.9 Gm Inh, 12.9 GM INH Q4H PRN for SHORTNESS OF BREATH, #3 INH 4 Refills Prov:DEJUAN DOSHI MD 05/23/17 Reported Medications Olanzapine (OLANZAPINE) 2.5 Mg Tablet, 2.5 MG PO QDAY 04/18/18 Apixaban (ELIQUIS) 2.5 Mg Tablet, 2.5 MG PO BID 02/27/18 Brimonidine Tartrate (ALPHAGAN P) 5 Ml Drops, 1 DROP OU BID 12/13/14 Reviewed Nurses Notes: Yes Old Medical Records Reviewed: Yes (ARSALNA BLAND MD) Hx Smoking: Yes (1 PPWEEK X37YRS) Smoking Status: Current: Every Day Smoker Exposure to Second Hand Smoke?: No Hx Substance Use Disorder: No Hx Alcohol Use: No (ARSALAN BLAND MD) Constitutional Vital Sign - Last 24 Hours 11/16/18 17:29 Temp 98.3 Pulse 90 Resp 16 B/P (MAP) 132/93 Pulse Ox 92 O2 Delivery Room Air (CHINGHAIR Everton DO) Physical Exam General Appearance: The patient is alert, has no immediate need for airway protection and no signs of toxicity. [ ] Eyes: Pupils equal and round no pallor or injection. ENT, Mouth: Mucous membranes are moist. Respiratory: There are no retractions, lungs are clear to auscultation. Cardiovascular: Regular rate and rhythm. Neurological: alert, oriented, cao Skin: no rashes, mild ecchymosis l calf Musculoskeletal: left mid calf ttp, no clear masses, poss sm palpable cord. No popliteal ttp DIFFERENTIAL DIAGNOSIS: After history and physical exam differential diagnosis was considered for dvt, abscess, superficial thrombophlebitis (ARSALAN BLAND MD) Medical Decision Making Data Points Result Diagram: 06/21/18 1851 06/21/18 1851 Laboratory Hematology Test 06/21/18 18:51 Red Blood Count 5.53 M/uL (4.00-5.60) Mean Corpuscular Volume 88.4 fL (80.0-96.0) Mean Corpuscular Hemoglobin 30.5 pg (26.0-33.0) Mean Corpuscular Hemoglobin Concent 34.5 g/dL (32.0-36.0) Red Cell Distribution Width 14.0 % (11.5-14.5) Mean Platelet Volume 8.1 fL (7.2-11.1) Neutrophils (%) (Auto) 54.4 % (39.4-72.5) Lymphocytes (%) (Auto) 38.6 % (17.6-49.6) Monocytes (%) (Auto) 5.9 % (4.1-12.4) Eosinophils (%) (Auto) 0.4 % (0.4-6.7) Basophils (%) (Auto) 0.7 % (0.3-1.4) Nucleated RBC Relative Count (auto) 0.1 /100WBC Neutrophils # (Auto) 4.0 K/uL (2.0-7.4) Lymphocytes # (Auto) 2.9 K/uL (1.3-3.6) Monocytes # (Auto) 0.4 K/uL (0.3-1.0) Eosinophils # (Auto) 0.0 K/uL (0.0-0.5) Basophils # (Auto) 0.1 K/uL (0.0-0.1) Nucleated RBC Absolute Count (auto) 0.00 K/uL Prothrombin Time 12.5 seconds (12.0-14.4) Prothromb Time International Ratio 0.93 Activated Partial Thromboplast Time 28 seconds (23-35) Sodium Level 139 mmol/L (137-145) Potassium Level 4.0 mmol/L (3.5-5.0) Chloride Level 105 mmol/L (98-107) Carbon Dioxide Level 26 mmol/L (22-30) Blood Urea Nitrogen 13 mg/dl (9-21) Creatinine 0.90 mg/dl (0.66-1.25) Glomerular Filtration Rate Calc > 60.0 Random Glucose 88 mg/dl (75-110) Calcium Level 9.7 mg/dl (8.4-10.2) Total Bilirubin 0.5 mg/dl (0.2-1.3) Aspartate Amino Transf (AST/SGOT) 30 U/L (0-35) Alanine Aminotransferase (ALT/SGPT) 49 U/L (0-56) Alkaline Phosphatase 51 U/L (0-126) Total Protein 7.0 g/dl (6.3-8.2) Albumin 4.2 g/dl (3.5-5.0) Chemistry Test 06/21/18 18:51 White Blood Count 7.4 k/uL (4.5-11.0) Red Blood Count 5.53 M/uL (4.00-5.60) Hemoglobin 16.9 g/dL (14.0-18.0) Hematocrit 48.9 % (42.0-52.0) Mean Corpuscular Volume 88.4 fL (80.0-96.0) Mean Corpuscular Hemoglobin 30.5 pg (26.0-33.0) Mean Corpuscular Hemoglobin Concent 34.5 g/dL (32.0-36.0) Red Cell Distribution Width 14.0 % (11.5-14.5) Platelet Count 228 K/uL (150-450) Mean Platelet Volume 8.1 fL (7.2-11.1) Neutrophils (%) (Auto) 54.4 % (39.4-72.5) Lymphocytes (%) (Auto) 38.6 % (17.6-49.6) Monocytes (%) (Auto) 5.9 % (4.1-12.4) Eosinophils (%) (Auto) 0.4 % (0.4-6.7) Basophils (%) (Auto) 0.7 % (0.3-1.4) Nucleated RBC Relative Count (auto) 0.1 /100WBC Neutrophils # (Auto) 4.0 K/uL (2.0-7.4) Lymphocytes # (Auto) 2.9 K/uL (1.3-3.6) Monocytes # (Auto) 0.4 K/uL (0.3-1.0) Eosinophils # (Auto) 0.0 K/uL (0.0-0.5) Basophils # (Auto) 0.1 K/uL (0.0-0.1) Nucleated RBC Absolute Count (auto) 0.00 K/uL Prothrombin Time 12.5 seconds (12.0-14.4) Prothromb Time International Ratio 0.93 Activated Partial Thromboplast Time 28 seconds (23-35) Glomerular Filtration Rate Calc > 60.0 Calcium Level 9.7 mg/dl (8.4-10.2) Total Bilirubin 0.5 mg/dl (0.2-1.3) Aspartate Amino Transf (AST/SGOT) 30 U/L (0-35) Alanine Aminotransferase (ALT/SGPT) 49 U/L (0-56) Alkaline Phosphatase 51 U/L (0-126) Total Protein 7.0 g/dl (6.3-8.2) Albumin 4.2 g/dl (3.5-5.0) Coagulation Test 06/21/18 18:51 Prothrombin Time 12.5 seconds Prothromb Time International Ratio 0.93 Activated Partial Thromboplast Time 28 seconds (HAIR CHNA DO) EKG/Imaging Imaging Results: Ultrasound of the left lower extremity venogram was obtained. The results of the study are EXAMINATION: VENOUS DOPP LOW LEFT EXTREMITY COMPARISON: None Available HISTORY: Left calf tender to palpation. FINDINGS: Standard left lower extremity Doppler ultrasound with color flow and spectral analysis is performed. The common femoral, femoral, and popliteal veins are widely patent and compress appropriately. The visualized calf veins and the proximal greater saphenous vein are patent. No popliteal fluid collection. The contralateral common femoral vein is patent. IMPRESSION: No left lower extremity deep venous thrombosis. The study was read by the radiologist. I viewed the images myself on the PACS system. (HAIR CHAN DO) ED Course/Re-evaluation ED Course 53 m, hx dvt on elequis, admits to forgetting 1 x/wk, presents with l calf pain similar to his dvt index. Will r/o dvt, if neg, doubt emergent etiology. T/o to Dr. Chan awaiting us and labs. (ARSALAN BLAND MD) ED Course Patient's care was assumed at shift change from Dr. Sheng Bland. Diagnostic ultrasound of his left lower extremity was pending. Patient has a long history of recurrent DVTs. He is on Eliquis. Patient's ultrasound was negative for evidence of DVT. Patient was reassured. He is advised to take Tylenol for pain and apply heating pad to the affected area. Follow-up with primary care if unimproved in 3-5 days. Decision to Disposition Date: Jun 21, 2018 Decision to Disposition Time: 19:48 (HAIR CHAN DO) Depart Departure Latest Vital Signs Vital Signs Date Time Temp Pulse Resp B/P (MAP) Pulse Ox O2 Delivery O2 Flow Rate FiO2 06/21/18 17:29 98.3 90 16 132/93 92 Room Air (HAIR CHAN DO) Impression: Primary Impression: Leg pain Additional Impressions: History of DVT (deep vein thrombosis) Chronic anticoagulation Condition: Improved Disposition: HOME OR SELF-CARE Referrals: DEJUAN DOSHI MD (PCP) Patient Instructions: Leg Pain (ED) Additional Instructions: Take Tylenol as needed for pain relief Follow-up with your primary care if unimproved in 3-5 days Problem Qualifiers Primary Impression: Leg pain Laterality: left Qualified Codes: M79.605 - Pain in left leg ARSALAN BLAND MD Jun 21, 2018 17:54 HAIR CHAN DO Jun 21, 2018 19:50
[2018-06-21 19:00] LABS: PLATELET COUNT, AUTOMATED 228 K/uL (150-450)
[2018-06-21 19:05] LABS: INR 0.93
--- NOTE | 2018-06-21 19:25 | RADIOLOGY IMAGING REPORT ---
FACILITY: [facility] [place] PATIENT NAME: Prudencio Connolly : 1965 MR: [id number] V: [id number] EXAM DATE: ORDERING PHYSICIAN: ARSALAN BLAND TECHNOLOGIST: Location: [facility] [place] Patient: Prudencio Connolly : 1965 Visit/Account:[id number] Date of Sevice: 06/21/2018 EXAMINATION: VENOUS DOPP LOW LEFT EXTREMITY COMPARISON: None Available HISTORY: Left calf tender to palpation. FINDINGS: Standard left lower extremity Doppler ultrasound with color flow and spectral analysis is p erformed. The common femoral, femoral, and popliteal veins are widely patent and compress appropriately. The v isualized calf veins and the proximal greater saphenous vein are patent. No popliteal fluid collection. The contralateral common femoral vein is patent. IMPRESSION: No left lower extremity deep venous thrombosis. Report Dictated By: Jax Langley MD at 06/21/2018 7:20 PM Report E-Signed By: Jax Langley MD at 06/21/2018 7:21 PM [id number]
== END 2018-06-21 19:58 | disposition home or self-care (01) ==
LOC: ER 17:08
DX: M79.662 Pain in left lower leg (principal); Z86.718 Personal history of other venous thrombosis and embolism; Z79.01 Long term (current) use of anticoagulants
CPT/HCPCS: 82040; 82247; 82310; 82374; 82435; 82565; 82947; 84075; 84132; 84155; 84295; 84450; 84460; 84520; 85025; 85610; 85730; 99284

== ENCOUNTER → 2018-06-26 | Outpatient (CLI) | payer MEDICARE, MEDICAID ==
[2016-02-16 10:09] VITALS: BMI 33.1
[2018-06-26 11:38] LABS: INR 0.91; PLATELET COUNT, AUTOMATED 233 K/uL (150-450)
--- NOTE | 2018-06-26 11:54 | EKG ---
FACILITY: [facility] PATIENT NAME: BLANCO RUFFIN : [id number] MR: [id number] V: [id number] EXAM DATE: ORDERING PHYSICIAN: SANA VACA TECHNOLOGIST: ALEJANDRO Mari Reason : PREOP-SCOPE Blood Pressure : / mmHG Vent. Rate : 065 BPM Atrial Rate : 065 BPM P-R Int : 166 ms QRS Dur : 108 ms QT Int : 384 ms P-R-T Axes : 067 053 059 degrees QTc Int : 399 ms Normal sinus rhythm Normal ECG No previous ECGs available Confirmed by MAXIMILIANO LINN ([id number]) on 06/26/2018 8:28:00 PM Referred By: Confirmed By:MAXIMILIANO LINN
== END ==
LOC: LAB 11:13
PROVIDERS: ATTEND Internal Medicine Gastroenterology
DX: R47.02 Dysphasia (principal); K21.9 Gastro-esophageal reflux disease without esophagitis; I82.409 Acute embolism and thrombosis of unspecified deep veins of unspecified lower extremity
CPT/HCPCS: 36415; 82040; 82247; 82310; 82374; 82435; 82565; 82947; 84075; 84132; 84155; 84295; 84450; 84460; 84520; 85025; 85610; 93005

== ENCOUNTER 2018-09-13 13:42 | Emergency (ER) | payer MEDICARE, MEDICAID ==
[2016-02-16 10:09] VITALS: Wt 124.7 kg
--- NOTE | 2018-09-13 13:50 | ER Report ---
History and Physical Time Seen By MD: 13:50 HPI/ROS CHIEF COMPLAINT: Anxiety HISTORY OF PRESENT ILLNESS: This is a 53-year-old male presents to the emergency department for anxiety. Patient states that he moved into a new apartment, across the [place] from his old apartment in hopes of eliminating individuals who may be concerning to his agitation. The patient states that the management of his apartment complexes worked with him and they plan this move for several months. Patient states that once the move was completed yesterday last night there was one episode of loud noises, today seemed to increase in the frequency of loud noises, patient did try to remove himself from the situation today, went outside to smoke and a neighbor that he feels that is concerning to this when outside to smoke at the same time, they got into a verbal argument, the patient then removed himself from the situation was very anxious and agitated, unsure what to do he decided to come into the emergency department for assistance with his anxiety and agitation. He denies suicidal or homicidal ideations. No fevers or chills. No chest pain or shortness of breath. REVIEW OF SYSTEMS: Respiratory: No cough, no dyspnea. Cardiovascular: No chest pain, no palpitations. Gastrointestinal: No vomiting, no abdominal pain. Musculoskeletal: No back pain. Psychological: As above. Allergies: Coded Allergies: Haloperidol Lactate (Verified Adverse Reaction, Severe, LARYNGOSPASM, 09/13/18) niacin (Verified Adverse Reaction, Unknown, BODY RASH TO TORSO AND LIMBS, 09/13/18) Home Meds Active Scripts Apixaban (ELIQUIS) 2.5 Mg Tablet, 2.5 MG PO BID, #180 TAB 3 Refills Prov:DEJUAN DOSHI MD 08/19/18 Omeprazole (OMEPRAZOLE) 40 Mg Capsule.dr, 40 MG PO QDAY, #90 CAP 3 Refills Prov:DEJUAN DOSHI MD 08/07/18 Ipratropium [place] 17 Mcg/Act (ATROVENT HFA 17 MCG/ACT) 12.9 Gm Inh, 12.9 GM INH Q4H PRN for SHORTNESS OF BREATH, #3 INH 4 Refills Prov:DEJUAN DOSHI MD 05/23/17 Reported Medications Olanzapine (OLANZAPINE) 2.5 Mg Tablet, 2.5 MG PO QDAY 04/18/18 Brimonidine Tartrate (ALPHAGAN P) 5 Ml Drops, 1 DROP OU BID 12/13/14 Past Medical/Surgical History The patient has a past medical and surgical history of DVT, hypercholesterol emia, esophageal spasms, kidney stones, muscle tension, arthritis, fractures in the right hand, foot and no skull, dysphasia, wears glasses, coma, multiple self-inflicted injuries, schizoaffective disorder, depression, anxiety, skin cancer to right ear, reconstructive surgery of the left wrist, Mohs procedure, strabismus. Reviewed Nurses Notes: Yes Hx Smoking: Yes (1 PPWEEK X37YRS) Smoking Status: Current: Every Day Smoker Exposure to Second Hand Smoke?: No Hx Substance Use Disorder: No Hx Alcohol Use: No Constitutional Vital Sign - Last 24 Hours 09/13/18 09/13/18 09/13/18 09/13/18 13:42 13:47 13:48 14:00 Temp 98.1 Pulse 89 95 Resp 18 B/P (MAP) 159/97 (117) 159/97 164/92 (116) Pulse Ox 92 95 O2 Delivery Room Air Room Air 09/13/18 09/13/18 14:12 14:30 Pulse 91 B/P (MAP) 152/98 (116) Pulse Ox 93 O2 Delivery Room Air Physical Exam General Appearance: The patient is alert, has no immediate need for airway protection and no current signs of toxicity. Eyes: Pupils equal and round no injection. Respiratory: Chest is non tender, lungs are clear to auscultation. Cardiac: regular rate and rhythm. Gastrointestinal: Abdomen is soft and non tender, no masses, bowel sounds normal. Musculoskeletal: Neck: Neck is supple and non tender. Extremities have full range of motion and are non tender. Skin: No rashes or lesions. Psychological: Making intermittent eye contact, rapid breathing however while I 'm talking with the patient his breathing does begin to slow. No ringing of the hands. Cooperative while in the emergency department. DIFFERENTIAL DIAGNOSIS: After history and physical exam differential diagnosis was considered for anxiety. Medical Decision Making ED Course/Re-evaluation ED Course The patient was admitted to room. A history and physical were obtained. Differential diagnoses were considered. After speaking with the patient, he was given 1 ODT Zyprexa, patient was also requesting Ativan I did talk to amount taking these 2 medications together, we agreed on the Zyprexa to start. The [place] [employer] was contacted at the request of the patient, he did make a statement regarding his concerns at his apartment. After the patient received his medications and made a statement he left before he was given his discharge paperwork. Patient did not appear to be agitated at this time. Patient denied suicidal or homicidal ideations. He remained cooperative while in the emergency department. Decision to Disposition Date: Sep 13, 2018 Decision to Disposition Time: 15:07 Depart Departure Latest Vital Signs Vital Signs Date Time Temp Pulse Resp B/P (MAP) Pulse Ox O2 Delivery O2 Flow Rate FiO2 09/13/18 14:30 152/98 (116) 09/13/18 14:12 91 93 Room Air 09/13/18 13:48 98.1 18 Impression: Primary Impression: Generalized anxiety disorder Condition: Improved Disposition: HOME OR SELF-CARE Referrals: DEJUAN DOSHI MD (PCP) 1 Week Patient Instructions: Anxiety (ED) Additional Instructions: Please continue taking her medications as prescribed. Please follow-up with your primary care provider within one week for reevaluation. Return to the ER for any other concerns or worsening symptoms. MARTÍN GUNTER [employer] Sep 13, 2018 13:50
[2018-09-13] MEDS ORDERED: OLANZapine ZYDIS ODT 5MG TABDP PO ONE (14:10)
[2018-09-13 14:30] VITALS: BP 152/98
[2018-09-16] MEDS ORDERED: IPR14R INH (11:25)
== END 2018-09-13 14:45 | disposition left against medical advice (07) ==
LOC: ER 14:37
DX: F41.9 Anxiety disorder, unspecified (principal)
CPT/HCPCS: 99283; A9270

== ENCOUNTER 2018-09-13 15:36 | Emergency (ER) | payer MEDICARE, MEDICAID ==
[2016-02-16 10:09] VITALS: BMI 33.1
--- NOTE | 2018-09-13 15:50 | ER Report ---
History and Physical Time Seen By MD: 15:49 Hx. of Stated Complaint: anxiety HPI/ROS CHIEF COMPLAINT: Anxiety HISTORY OF PRESENT ILLNESS: Patient is a 53-year-old male who left shortly prior to returning with complaints of anxiety, agitation with his apartment complex and management. Patient had received Zyprexa and left against medical advice. Patient returned promptly after having another confrontation. Denies homicidal or suicidal ideations. REVIEW OF SYSTEMS: Constitutional: No fever, no chills. Eyes: No discharge. ENT: No sore throat. Cardiovascular: No chest pain, no palpitations. Respiratory: No cough, no shortness of breath. Gastrointestinal: No abdominal pain, no vomiting. Genitourinary: No hematuria. Musculoskeletal: No back pain. Skin: No rashes. Neurological: No headache. Psychiatric anxious appearing Allergies: Coded Allergies: Haloperidol Lactate (Verified Adverse Reaction, Severe, LARYNGOSPASM, 09/13/18) niacin (Verified Adverse Reaction, Unknown, BODY RASH TO TORSO AND LIMBS, 09/13/18) Home Meds Active Scripts Ipratropium [place] 17 Mcg/Act (ATROVENT HFA 17 MCG/ACT) 12.9 Gm Inh, 12.9 GM INH Q4H PRN for SHORTNESS OF BREATH, #3 INH 3 Refills Prov:DEJUAN DOSHI MD 09/16/18 Apixaban (ELIQUIS) 2.5 Mg Tablet, 2.5 MG PO BID, #180 TAB 3 Refills Prov:DEJUAN DOSHI MD 08/19/18 Omeprazole (OMEPRAZOLE) 40 Mg Capsule.dr, 40 MG PO QDAY, #90 CAP 3 Refills Prov:DEJUAN DOSHI MD 08/07/18 Reported Medications Olanzapine (OLANZAPINE) 2.5 Mg Tablet, 2.5 MG PO QDAY 04/18/18 Brimonidine Tartrate (ALPHAGAN P) 5 Ml Drops, 1 DROP OU BID 12/13/14 Hx Smoking: Yes (1 PPWEEK X37YRS) Smoking Status: Current: Every Day Smoker Exposure to Second Hand Smoke?: No Hx Substance Use Disorder: No Hx Alcohol Use: No Physical Exam General Appearance: The patient is alert, has no immediate need for airway protection and no signs of toxicity. No acute distress, anxious appearing denies suicidal or homicidal ideation Eyes: Pupils equal and round no pallor or injection. ENT, Mouth: Mucous membranes are moist. Respiratory: There are no retractions, lungs are clear to auscultation. Cardiovascular: Regular rate and rhythm. [ ] Gastrointestinal: Abdomen is soft and non tender, no masses, bowel sounds normal. Neurological: No focal neurological deficits Skin: Warm and dry, no rashes. Musculoskeletal: Neck is supple non tender. Extremities are nontender, nonswollen and have full range of motion. DIFFERENTIAL DIAGNOSIS: After history and physical exam differential diagnosis was considered for depression, anxiety, bipolar disorder, illicit drug use Medical Decision Making ED Course/Re-evaluation ED Course Patient is a 53-year-old male here with complaints of anxiety, multiple confrontations with individuals at his apartment complex. Patient had just left against medical advice after receiving Zyprexa. He is given a repeat dose of Zyprexa and Ativan. Patient significant relief of symptoms. Denies suicidal or homicidal ideations. Patient again left after receiving his medication prior to being formally discharged by nursing staff. Decision to Disposition Date: Sep 13, 2018 Decision to Disposition Time: 16:32 Depart Departure Impression: Primary Impression: Generalized anxiety disorder Condition: Improved Disposition: HOME OR SELF-CARE Referrals: DEJUAN DOSHI MD (PCP) Patient Instructions: Anxiety (ED) Additional Instructions: Please follow-up with your family doctor in the next 24-48 hours. Please return immediately if you develop thoughts of self-harm or harming others, worsening anxiety. ROBERT RUELAS DO Sep 13, 2018 15:50
[2018-09-13] MEDS ORDERED: OLANZapine 5 MG TAB PO SCH (16:00)
[2018-09-13] MEDS ORDERED: LORazepam 1 MG TAB PO ONE (16:00)
[2018-09-16] MEDS ORDERED: IPR14R INH (11:25)
== END 2018-09-13 16:43 | disposition home or self-care (01) ==
LOC: ER 16:03
DX: F41.9 Anxiety disorder, unspecified (principal)
CPT/HCPCS: 99283; A9270

== ENCOUNTER 2018-10-07 15:55 | Emergency (ER) | payer MEDICARE, MEDICAID ==
[2016-02-16 10:09] VITALS: Wt 131.5 kg
[2018-10-07 16:02] VITALS: BP 144/107
--- NOTE | 2018-10-07 16:23 | ER Report ---
History and Physical Time Seen By MD: 16:23 Hx. of Stated Complaint: PT REPORTS "PROBLEMS IN HIS APARTMENT, A MAN IS FOLLOWING/STALKING HIM. ANXIETY. "I'M SO FUCKING STRESSED OUT" HPI/ROS CHIEF COMPLAINT: Anxiety, agitation HISTORY OF PRESENT ILLNESS: This is a 53-year-old male. He came to the ER today because he states that he is at the end of his rope and doesn't know what else to do. He has a history of anxiety and depression. With his new apartment situation, he states that the people around him below and to the side of his apartment continued to make loud banging noises. These happen all day long and he has called the police yet nothing is done. He is talked to management and they said that he is free to move if this is a problem for him. He can't get comfortable because the symptoms he does a lot of banging noise happens in all startle him. States that he got angry at one of the apartment janitors who was scraping some pain from the outside of the apartment in the doorway, and got angry and blow up with him. He says there is another man that is been following him around town and stocking him, this is also a resident of the apartment complex he lives in. He is anxious stating that his heart is racing and he's having trouble eating. He also states that he is at the end of his rope and doesn't know what else to do and might consider suicide if things do not get better. Allergies: Coded Allergies: Haloperidol Lactate (Verified Adverse Reaction, Severe, LARYNGOSPASM, 09/13/18) niacin (Verified Adverse Reaction, Unknown, BODY RASH TO TORSO AND LIMBS, 09/13/18) Home Meds Active Scripts Ipratropium [place] 17 Mcg/Act (ATROVENT HFA 17 MCG/ACT) 12.9 Gm Inh, 12.9 GM INH Q4H PRN for SHORTNESS OF BREATH, #3 INH 3 Refills Prov:DEJUAN DOSHI MD 09/16/18 Apixaban (ELIQUIS) 2.5 Mg Tablet, 2.5 MG PO BID, #180 TAB 3 Refills Prov:DEJUAN DOSHI MD 08/19/18 Omeprazole (OMEPRAZOLE) 40 Mg Capsule., 40 MG PO QDAY, #90 CAP 3 Refills Prov:DEJUAN DOSHI MD 08/07/18 Reported Medications Olanzapine (OLANZAPINE) 2.5 Mg Tablet, 2.5 MG PO QDAY 04/18/18 Brimonidine Tartrate (ALPHAGAN P) 5 Ml Drops, 1 DROP OU BID 12/13/14 Reviewed Nurses Notes: Yes Hx Smoking: Yes (1 PPWEEK X37YRS) Smoking Status: Current: Every Day Smoker Exposure to Second Hand Smoke?: No Hx Substance Use Disorder: No Hx Alcohol Use: No Constitutional Vital Sign - Last 24 Hours 10/07/18 10/07/18 16:02 17:45 Temp 98.0 Pulse 116 100 Resp 20 B/P (MAP) 144/107 Pulse Ox 91 91 O2 Delivery Room Air Room Air Physical Exam General Appearance: Alert, very anxious and agitated. Eyes: Pupils equal and round, has some scleral injection. ENT: Normal oral mucosa. Moist mucous membranes. Neck: Neck is supple and non tender. Respiratory: Chest is non tender, lungs are clear to auscultation. Cardiac: regular rate and rhythm Gastrointestinal: Abdomen is soft and non tender, bowel sounds normal. Musculoskeletal: Extremities have full range of motion. Skin: No rashes or lesions. DIFFERENTIAL DIAGNOSIS: After history and physical exam differential diagnosis was considered for anxiety and agitation with comment on suicidal ideation Medical Decision Making Data Points Result Diagram: 10/07/18 1650 10/07/18 1650 Laboratory Hematology Test 10/07/18 16:00 10/07/18 16:50 Urine Color Yellow Urine Clarity Clear Urine pH 5.0 pH (4.8-9.5) Urine Specific [place] 1.016 Urine Protein Negative mg/dL (NEGATIVE) Urine Glucose (UA) Negative mg/dL (NEGATIVE) Urine Ketones Trace mg/dL (NEGATIVE) Urine Blood Negative (NEGATIVE) Urine Nitrite Negative (NEGATIVE) Urine Bilirubin Negative (NEGATIVE) Urine Urobilinogen Negative mg/dL (0.2-1.9) Urine Leukocyte Esterase Negative (NEGATIVE) Urine RBC None /HPF (0-2/HPF) Urine WBC 1 /HPF (0-5/HPF) Urine Squamous Epithelial Cells Few /LPF (</=FEW) Urine Bacteria Negative /HPF (NONE-FEW) Urine Mucus Few /HPF (NONE-FEW) Urine Opiates Screen Negative Urine Barbiturates Screen Negative Ur Tricyclic Antidepressants Screen Negative Urine Phencyclidine Screen Negative Urine Amphetamines Screen Negative Urine Benzodiazepines Screen Negative Urine Cocaine Screen Negative Urine Cannabinoids Screen Positive Red Blood Count 5.01 M/uL (4.00-5.60) Mean Corpuscular Volume 90.3 fL (80.0-96.0) Mean Corpuscular Hemoglobin 31.1 pg (26.0-33.0) Mean Corpuscular Hemoglobin Concent 34.5 g/dL (32.0-36.0) Red Cell Distribution Width 13.3 % (11.5-14.5) Mean Platelet Volume 8.4 fL (7.2-11.1) Neutrophils (%) (Auto) 72.3 % (39.4-72.5) Lymphocytes (%) (Auto) 22.8 % (17.6-49.6) Monocytes (%) (Auto) 3.6 % (4.1-12.4) Eosinophils (%) (Auto) 0.3 % (0.4-6.7) Basophils (%) (Auto) 1.0 % (0.3-1.4) Nucleated RBC Relative Count (auto) 0.1 /100WBC Neutrophils # (Auto) 6.3 K/uL (2.0-7.4) Lymphocytes # (Auto) 2.0 K/uL (1.3-3.6) Monocytes # (Auto) 0.3 K/uL (0.3-1.0) Eosinophils # (Auto) 0.0 K/uL (0.0-0.5) Basophils # (Auto) 0.1 K/uL (0.0-0.1) Nucleated RBC Absolute Count (auto) 0.01 K/uL Sodium Level 141 mmol/L (137-145) Potassium Level 3.6 mmol/L (3.5-5.0) Chloride Level 109 mmol/L (98-107) Carbon Dioxide Level 20 mmol/L (22-30) Blood Urea Nitrogen 11 mg/dl (9-21) Creatinine 0.90 mg/dl (0.66-1.25) Glomerular Filtration Rate Calc > 60.0 Random Glucose 156 mg/dl (75-110) Calcium Level 9.7 mg/dl (8.4-10.2) Magnesium Level 1.9 mg/dl (1.7-2.2) Total Bilirubin 0.5 mg/dl (0.2-1.3) Aspartate Amino Transf (AST/SGOT) 25 U/L (0-35) Alanine Aminotransferase (ALT/SGPT) 44 U/L (0-56) Alkaline Phosphatase 62 U/L (0-126) Total Protein 6.8 g/dl (6.3-8.2) Albumin 4.6 g/dl (3.5-5.0) Salicylates Level < 10 mg/L Salicylate Last Dose Date unk Acetaminophen Level < 10 ug/ml Serum Alcohol < 10 mg/dl Chemistry Test 10/07/18 16:00 10/07/18 16:50 Urine Color Yellow Urine Clarity Clear Urine pH 5.0 pH (4.8-9.5) Urine Specific [place] 1.016 Urine Protein Negative mg/dL (NEGATIVE) Urine Glucose (UA) Negative mg/dL (NEGATIVE) Urine Ketones Trace mg/dL (NEGATIVE) Urine Blood Negative (NEGATIVE) Urine Nitrite Negative (NEGATIVE) Urine Bilirubin Negative (NEGATIVE) Urine Urobilinogen Negative mg/dL (0.2-1.9) Urine Leukocyte Esterase Negative (NEGATIVE) Urine RBC None /HPF (0-2/HPF) Urine WBC 1 /HPF (0-5/HPF) Urine Squamous Epithelial Cells Few /LPF (</=FEW) Urine Bacteria Negative /HPF (NONE-FEW) Urine Mucus Few /HPF (NONE-FEW) Urine Opiates Screen Negative Urine Barbiturates Screen Negative Ur Tricyclic Antidepressants Screen Negative Urine Phencyclidine Screen Negative Urine Amphetamines Screen Negative Urine Benzodiazepines Screen Negative Urine Cocaine Screen Negative Urine Cannabinoids Screen Positive White Blood Count 8.7 k/uL (4.5-11.0) Red Blood Count 5.01 M/uL (4.00-5.60) Hemoglobin 15.6 g/dL (14.0-18.0) Hematocrit 45.3 % (42.0-52.0) Mean Corpuscular Volume 90.3 fL (80.0-96.0) Mean Corpuscular Hemoglobin 31.1 pg (26.0-33.0) Mean Corpuscular Hemoglobin Concent 34.5 g/dL (32.0-36.0) Red Cell Distribution Width 13.3 % (11.5-14.5) Platelet Count 232 K/uL (150-450) Mean Platelet Volume 8.4 fL (7.2-11.1) Neutrophils (%) (Auto) 72.3 % (39.4-72.5) Lymphocytes (%) (Auto) 22.8 % (17.6-49.6) Monocytes (%) (Auto) 3.6 % (4.1-12.4) Eosinophils (%) (Auto) 0.3 % (0.4-6.7) Basophils (%) (Auto) 1.0 % (0.3-1.4) Nucleated RBC Relative Count (auto) 0.1 /100WBC Neutrophils # (Auto) 6.3 K/uL (2.0-7.4) Lymphocytes # (Auto) 2.0 K/uL (1.3-3.6) Monocytes # (Auto) 0.3 K/uL (0.3-1.0) Eosinophils # (Auto) 0.0 K/uL (0.0-0.5) Basophils # (Auto) 0.1 K/uL (0.0-0.1) Nucleated RBC Absolute Count (auto) 0.01 K/uL Glomerular Filtration Rate Calc > 60.0 Calcium Level 9.7 mg/dl (8.4-10.2) Magnesium Level 1.9 mg/dl (1.7-2.2) Total Bilirubin 0.5 mg/dl (0.2-1.3) Aspartate Amino Transf (AST/SGOT) 25 U/L (0-35) Alanine Aminotransferase (ALT/SGPT) 44 U/L (0-56) Alkaline Phosphatase 62 U/L (0-126) Total Protein 6.8 g/dl (6.3-8.2) Albumin 4.6 g/dl (3.5-5.0) Salicylates Level < 10 mg/L Salicylate Last Dose Date unk Acetaminophen Level < 10 ug/ml Serum Alcohol < 10 mg/dl Toxicology Test 10/07/18 16:00 10/07/18 16:50 Urine Opiates Screen Negative Urine Barbiturates Screen Negative Ur Tricyclic Antidepressants Screen Negative Urine Phencyclidine Screen Negative Urine Amphetamines Screen Negative Urine Benzodiazepines Screen Negative Urine Cocaine Screen Negative Urine Cannabinoids Screen Positive Salicylates Level < 10 mg/L Salicylate Last Dose Date unk Acetaminophen Level < 10 ug/ml Serum Alcohol < 10 mg/dl Urinalysis Test 10/07/18 16:00 Urine Color Yellow Urine Clarity Clear Urine pH 5.0 pH (4.8-9.5) Urine Specific [place] 1.016 Urine Protein Negative mg/dL (NEGATIVE) Urine Glucose (UA) Negative mg/dL (NEGATIVE) Urine Ketones Trace mg/dL (NEGATIVE) Urine Blood Negative (NEGATIVE) Urine Nitrite Negative (NEGATIVE) Urine Bilirubin Negative (NEGATIVE) Urine Urobilinogen Negative mg/dL (0.2-1.9) Urine Leukocyte Esterase Negative (NEGATIVE) Urine RBC None /HPF (0-2/HPF) Urine WBC 1 /HPF (0-5/HPF) Urine Squamous Epithelial Cells Few /LPF (</=FEW) Urine Bacteria Negative /HPF (NONE-FEW) Urine Mucus Few /HPF (NONE-FEW) ED Course/Re-evaluation ED Course Had discussion with behavioral health and they are not in a position to admit him at this time based on several factors. He is not actively suicidal, stating that if things do not improve he might consider. Behavioral health had a tech come and talk to him. Recommendation was for continued outpatient therapy. Option was given to try to get him to another facility if he feels like he is not safe. He feels safe to go home and give this a couple of days, and follow-up with outpatient resources. Decision to Disposition Date: Oct 07, 2018 Decision to Disposition Time: 17:40 Depart Departure Latest Vital Signs Vital Signs Date Time Temp Pulse Resp B/P (MAP) Pulse Ox O2 Delivery O2 Flow Rate FiO2 10/07/18 17:45 100 91 Room Air 10/07/18 16:02 98.0 20 144/107 Impression: Primary Impression: Depression Additional Impressions: Generalized anxiety disorder Schizoaffective disorder Condition: Condition Unchanged Disposition: HOME OR SELF-CARE Referrals: DEJUAN DOSHI MD (PCP) Additional Instructions: You can call the help line or return to the ER if needed for worsening symptoms of depression, or worsening suicidal thoughts. Follow-up with your outpatient counselors. No changes to medications at this time. Problem Qualifiers Primary Impression: Depression Depression Type: reactive depression Qualified Codes: F32.9 - Major depressive disorder, single episode, unspecified Additional Impressions: Schizoaffective disorder Schizoaffective disorder type: other Qualified Codes: F25.8 - Other schizoaffective disorders STEW GREGG MD Oct 07, 2018 16:23
[2018-10-07 17:05] LABS: PLATELET COUNT, AUTOMATED 232 K/uL (150-450)
== END 2018-10-07 17:51 | disposition home or self-care (01) ==
LOC: ER 16:35
DX: F32.9 Major depressive disorder, single episode, unspecified (principal); F25.8 Other schizoaffective disorders; F41.1 Generalized anxiety disorder; F17.200 Nicotine dependence, unspecified, uncomplicated
CPT/HCPCS: 80305; 81001; 83735; 84443; 85025; 99283; G0480; 80320; 80329; 82040; 82247; 82310; 82374; 82435; 82565; 82947; 84075; 84132; 84155; 84295; 84450; 84460; 84520

== ENCOUNTER 2018-10-16 14:45 | Emergency (ER) | payer MEDICARE, MEDICAID ==
[2016-02-16 10:09] VITALS: Wt 131.5 kg
--- NOTE | 2018-10-16 15:23 | ER Report ---
History and Physical Time Seen By MD: 14:45 Hx. of Stated Complaint: PT STATES HIS ANXIETY IS "BLOWING UP" AND NEEDS MORE MEDS HPI/ROS CHIEF COMPLAINT: Anxiety HISTORY OF PRESENT ILLNESS: 53-year-old male frequent visitor to [facility] emergency department today he has run out of his medication is Zyprexa and spoke through my nurse to a psychiatric physician who prescribes evidently he has been self-medicating himself she's not comfortable refilling his prescription until she sees him on Sunday but did as compacted bridge him for 2 days until then patient's having no suicidal homicidal thoughts hallucinations auditory or visual patient says he is feeling very anxious since she's not been able to get a Zyprexa patient has no additional complaints at this time REVIEW OF SYSTEMS: Respiratory: No cough, no dyspnea. Cardiovascular: No chest pain, no palpitations. Gastrointestinal: No vomiting, no abdominal pain. Musculoskeletal: No back pain. Remainder of the 14 system rev: Yes Allergies: Coded Allergies: Haloperidol Lactate (Verified Adverse Reaction, Severe, LARYNGOSPASM, 09/13/18) niacin (Verified Adverse Reaction, Unknown, BODY RASH TO TORSO AND LIMBS, 09/13/18) Home Meds Active Scripts Ipratropium [place] 17 Mcg/Act (ATROVENT HFA 17 MCG/ACT) 12.9 Gm Inh, 12.9 GM INH Q4H PRN for SHORTNESS OF BREATH, #3 INH 3 Refills Prov:DEJUAN DOSHI MD 09/16/18 Apixaban (ELIQUIS) 2.5 Mg Tablet, 2.5 MG PO BID, #180 TAB 3 Refills Prov:DEJUAN DOSHI MD 08/19/18 Omeprazole (OMEPRAZOLE) 40 Mg Capsule.dr, 40 MG PO QDAY, #90 CAP 3 Refills Prov:DEJUAN DOSHI MD 08/07/18 Reported Medications Olanzapine (OLANZAPINE) 2.5 Mg Tablet, 2.5 MG PO QDAY 04/18/18 Brimonidine Tartrate (ALPHAGAN P) 5 Ml Drops, 1 DROP OU BID 12/13/14 Reviewed Nurses Notes: Yes Old Medical Records Reviewed: Yes Hx Smoking: Yes (1 PPWEEK X37YRS) Smoking Status: Current: Every Day Smoker Exposure to Second Hand Smoke?: No Hx Substance Use Disorder: No Hx Alcohol Use: No Constitutional Vital Sign - Last 24 Hours 10/16/18 14:52 Temp 97.5 Pulse 93 Resp 18 B/P (MAP) 156/104 Pulse Ox 93 O2 Delivery Room Air Physical Exam General Appearance: The patient is alert, has no immediate need for airway protection and no current signs of toxicity. [ ] Eyes: Pupils equal and round no injection. Respiratory: Chest is non tender, lungs are clear to auscultation. Cardiac: regular rate and rhythm [ ] Gastrointestinal: Abdomen is soft and non tender, no masses, bowel sounds normal. Musculoskeletal: Neck: Neck is supple and non tender. Extremities have full range of motion and are non tender. Skin: No rashes or lesions. Anxious DIFFERENTIAL DIAGNOSIS: After history and physical exam differential diagnosis was considered for anxiety Medical Decision Making ED Course/Re-evaluation ED Course ED clinical course 53-year-old male presents for anxiety has been out of his Zyprexa's communicated with Dr. Turner who is a psychiatric doctor who is sitting on Sunday and will asked to bridge him for 2 days which I will agree to do patient is not suicidal homicidal. Was able is able to be discharged Decision to Disposition Date: Oct 16, 2018 Decision to Disposition Time: 15:23 Depart Departure Latest Vital Signs Vital Signs Date Time Temp Pulse Resp B/P (MAP) Pulse Ox O2 Delivery O2 Flow Rate FiO2 10/16/18 14:52 97.5 93 18 156/104 93 Room Air Impression: Primary Impression: Generalized anxiety disorder Condition: Condition Unchanged Disposition: HOME OR SELF-CARE Referrals: DEJUAN DOSHI MD (PCP) 10 Days Patient Instructions: Anxiety (DC) ROME LOYOLA MD Oct 16, 2018 15:23
[2018-10-16 15:35] VITALS: BP 128/117
== END 2018-10-16 15:35 | disposition home or self-care (01) ==
LOC: ER 15:27
DX: F41.9 Anxiety disorder, unspecified (principal)
CPT/HCPCS: 99281

== ENCOUNTER 2018-11-15 15:19 | Emergency (ER) | payer MEDICARE, MEDICAID ==
[2016-02-16 10:09] VITALS: Wt 131.5 kg
[2018-11-15] MEDS ORDERED: ACET500T68 PO (15:34)
[2018-11-15] MEDS ORDERED: OLANZapine ZYDIS ODT 5MG TABDP PO ONE (15:40)
--- NOTE | 2018-11-15 15:46 | ER Report ---
History and Physical Time Seen By MD: 15:38 Hx. of Stated Complaint: ANXIETY RELATED TO CONCERNS OF STALKING. [employer] COMING TO VISIT WITH PATIENT PER HIS REQUEST. HPI/ROS CHIEF COMPLAINT: Anxiety HISTORY OF PRESENT ILLNESS: This is a 53-year-old male, well-known to the emergency department at presents today for anxiety. Patient states that he feels that his neighbors have a coordinated effort to cause him mental stress and anxiety secondary to loud noises. He feels that the other tenants in the apartment building have somehow coordinated efforts and are somehow able to monitor his movements in his apartment and feels that when he is resting they began causing loud noises by slamming doors, cabinets which causes him great mental stress and anxiety. This happened starting at around 11:00 today and has been very anxious since, has decided to come into the emergency department for an evaluation. He also wants to speak with the local police department regarding the incident and wants to make a formal complaint. He has no other complaints no nausea or vomiting. No chest pain or shortness breath. REVIEW OF SYSTEMS: Respiratory: No cough, no dyspnea. Cardiovascular: No chest pain, no palpitations. Gastrointestinal: No vomiting, no abdominal pain. Musculoskeletal: No back pain. Psychological: As above. Allergies: Coded Allergies: Haloperidol Lactate (Verified Adverse Reaction, Severe, LARYNGOSPASM, 11/15/18) niacin (Verified Adverse Reaction, Unknown, BODY RASH TO TORSO AND LIMBS, 11/15/18) Home Meds Active Scripts Ipratropium [place] 17 Mcg/Act (ATROVENT HFA 17 MCG/ACT) 12.9 Gm Inh, 12.9 GM INH Q4H PRN for SHORTNESS OF BREATH, #3 INH 3 Refills Prov:DEJUAN DOSHI MD 09/16/18 Apixaban (ELIQUIS) 2.5 Mg Tablet, 2.5 MG PO BID, #180 TAB 3 Refills Prov:DEJUAN DOSHI MD 08/19/18 Omeprazole (OMEPRAZOLE) 40 Mg Capsule.dr, 40 MG PO QDAY, #90 CAP 3 Refills Prov:DEJUAN DOSHI MD 08/07/18 Reported Medications Acetaminophen (TYLENOL EXTRA STRENGTH) 500 Mg Tablet, 1000 MG PO Q6H PRN for PAIN, TAB 11/15/18 Olanzapine (OLANZAPINE) 2.5 Mg Tablet, 2.5 MG PO QDAY 9/13/18 Brimonidine Tartrate (ALPHAGAN P) 5 Ml Drops, 1 DROP OU BID 12/13/14 Past Medical/Surgical History The patient has a past medical and surgical history of DVT, hypercholesterolemia, esophageal spasms, kidney stones, muscular tension, arthritis, right hand fracture, right foot fracture, nasal fracture, chronic back pain, dysphasia, wears glasses, carcoma bilaterally, depression, anxiety, schizoaffective disorder, previous suicide attempt, skin cancer, reconstructive surgery to left wrist, most was a seizure to the ear, strabismus the left eye. Reviewed Nurses Notes: Yes Hx Smoking: Yes (1 PPWEEK X37YRS) Smoking Status: Current: Every Day Smoker Exposure to Second Hand Smoke?: No Hx Substance Use Disorder: No Hx Alcohol Use: No Constitutional Vital Sign - Last 24 Hours 11/15/18 11/15/18 15:26 17:00 Temp 98.0 Pulse 89 80 Resp 21 20 B/P (MAP) 143/112 153/105 (121) Pulse Ox 91 95 O2 Delivery Room Air Room Air Physical Exam General Appearance: The patient is alert, has no immediate need for airway protection and no signs of toxicity. Eyes: Pupils equal and round no pallor or injection. ENT, Mouth: Mucous membranes are moist. Respiratory: There are no retractions, lungs are clear to auscultation. Cardiovascular: Regular rate and rhythm. Gastrointestinal: Abdomen is soft and non tender, no masses, bowel sounds normal. Neurological: Alert and oriented 4. Moving all commands. Following all commands. No focal neurodeficits. Skin: Warm and dry, no rashes. Musculoskeletal: Neck is supple non tender. Extremities are nontender, nonswollen and have full range of motion. Psychological: Very anxious, rapid speech, appears very tense. No suicidal or homicidal ideation. DIFFERENTIAL DIAGNOSIS: After history and physical exam differential diagnosis was considered for anxiety, depression. Medical Decision Making ED Course/Re-evaluation ED Course The patient was admitted to room. A history of physical were obtained. Differential diagnoses were considered. After lengthy discussion with patient, did give him 5 mg ODT Zyprexa, the police department was contacted at the patient's request, he did speak with the local officer regarding his concerns and his apartment building. Patient states he is feeling much better after the Zyprexa, he states he feels well enough to go home now. He will follow-up with his therapist as scheduled, he had no other questions or concerns at this time and was discharged home. Decision to Disposition Date: Nov 15, 2018 Decision to Disposition Time: 16:53 Depart Departure Latest Vital Signs Vital Signs Date Time Temp Pulse Resp B/P (MAP) Pulse Ox O2 Delivery O2 Flow Rate FiO2 11/15/18 17:00 80 20 153/105 (121) 95 Room Air 11/15/18 15:26 98.0 Impression: Primary Impression: Anxiety Condition: Improved Disposition: HOME OR SELF-CARE Referrals: DEJUAN DOSHI MD (PCP) Patient Instructions: Anxiety (ED) Additional Instructions: Please use your home anxiety relief techniques to help relax. Be sure to drink plain water. Get plenty of rest. Follow-up with your primary care provider as scheduled. Follow-up with your therapist as needed. Continue taking her medications as prescribed. Return to the ER for any concerns or worsening symptoms. MARTÍN GUNTER [employer] Nov 15, 2018 15:46
[2018-11-15 17:00] VITALS: BP 153/105
== END 2018-11-15 17:03 | disposition home or self-care (01) ==
LOC: ER 15:25
DX: F41.9 Anxiety disorder, unspecified (principal); F17.200 Nicotine dependence, unspecified, uncomplicated
CPT/HCPCS: 99283; A9270

== ENCOUNTER 2018-11-30 13:23 | Emergency (ER) | payer MEDICARE, MEDICAID ==
[2016-02-16 10:09] VITALS: Wt 131.5 kg
--- NOTE | 2018-11-30 13:41 | ER Report ---
History and Physical Time Seen By MD: 13:41 HPI/ROS CHIEF COMPLAINT: Low back pain HISTORY OF PRESENT ILLNESS: This is a 53-year-old male, well-known to the emergency department who presents for low back pain. Patient states that 2 days ago he was stretching his lower back and "tweaked it", has been trying home therapies including taking Tylenol which has not reduced the pain, and now is having some pain down his left buttock. No saddle anesthesias, loss of bowel or bladder or urinary retention. No fevers. No chills. He states the pain is similar to the pain he had a couple of years ago. REVIEW OF SYSTEMS: Respiratory: No cough, no dyspnea. Cardiovascular: No chest pain, no palpitations. Gastrointestinal: No vomiting, no abdominal pain. Musculoskeletal: As above. Allergies: Coded Allergies: Haloperidol Lactate (Verified Adverse Reaction, Severe, LARYNGOSPASM, 11/15/18) niacin (Verified Adverse Reaction, Unknown, BODY RASH TO TORSO AND LIMBS, 11/15/18) Home Meds Active Scripts Ipratropium [place] 17 Mcg/Act (ATROVENT HFA 17 MCG/ACT) 12.9 Gm Inh, 12.9 GM INH Q4H PRN for SHORTNESS OF BREATH, #3 INH 3 Refills Prov:DEJUAN DOSHI MD 09/16/18 Apixaban (ELIQUIS) 2.5 Mg Tablet, 2.5 MG PO BID, #180 TAB 3 Refills Prov:DEJUAN DOSHI MD 08/19/18 Omeprazole (OMEPRAZOLE) 40 Mg Capsule.dr, 40 MG PO QDAY, #90 CAP 3 Refills Prov:DEJUAN DOSHI MD 08/07/18 Reported Medications Acetaminophen (TYLENOL EXTRA STRENGTH) 500 Mg Tablet, 1000 MG PO Q6H PRN for PAIN, TAB 11/15/18 Olanzapine (OLANZAPINE) 2.5 Mg Tablet, 2.5 MG PO QDAY 04/18/18 Brimonidine Tartrate (ALPHAGAN P) 5 Ml Drops, 1 DROP OU BID 12/13/14 Past Medical/Surgical History The patient has a past medical and surgical history of DVT, hypercholesterolemia, esophageal spasms, kidney stones, muscle tension, arthritis, fracture of the right hand, right foot and was, degenerative disc disease, dysphasia, wears glasses, glaucoma, multiple medicines for depression, anxiety, suicide attempt, schizoaffective disorder, skin cancer, wrist surgery, most procedure to the right ear, strabismus. Reviewed Nurses Notes: Yes Hx Smoking: Yes (1 PPWEEK X37YRS) Smoking Status: Current: Every Day Smoker Exposure to Second Hand Smoke?: No Hx Substance Use Disorder: No Hx Alcohol Use: No Constitutional Vital Sign - Last 24 Hours 11/30/18 11/30/18 13:50 15:37 Temp 98.3 Pulse 87 93 Resp 18 16 B/P (MAP) 144/90 144/50 (81) Pulse Ox 91 90 O2 Delivery Room Air Room Air Physical Exam General Appearance: The patient is alert, has no immediate need for airway protection and no current signs of toxicity. Eyes: Pupils equal and round no injection. Respiratory: Chest is non tender, lungs are clear to auscultation. Cardiac: regular rate and rhythm. Gastrointestinal: Abdomen is soft and non tender, no masses, bowel sounds normal. Musculoskeletal: Neck: Neck is supple and non tender. Extremities have full range of motion and are non tender. Skin: No rashes or lesions. DIFFERENTIAL DIAGNOSIS: After history and physical exam differential diagnosis was considered for back pain including but not limited to muscular pain, herniated disc, spine fracture, intra-abdominal causes and urinary tract infection. Medical Decision Making EKG/Imaging Imaging PATIENT NAME: Prudencio Connolly : 1965 MR: [id number] V: [id number] EXAM DATE: [id number] ORDERING PHYSICIAN: MARTÍN GUNTER TECHNOLOGIST: Location: [facility] - [place] Patient: Prudencio Connolly : 1965 Visit/Account:[id number] Date of Sevice: 11/30/2018 L-SPINE >4 VIEWS INDICATION: Back pain with radiation. COMPARISON: 11/27/2017. FINDINGS: 5 views of the lumbar spine. There are 5 nonrib-bearing lumbar vertebral bodies. The vertebral bodies are aligned. No compression fractures, bony lesions or spondylolysis. There is again diffuse mild degenerative change including disc space narrowing, osteophytes and facet arthropathy. The endplates are maintained. The pedicles are well seen. Soft tissues are unremarkable. IMPRESSION: Stable exam showing mild degenerative changes without acute abnormality. Report Dictated By: Benjamin Arreola at 11/30/2018 3:16 PM Report E-Signed By: Benjamin Arreola at 11/30/2018 3:19 PM WSN:[id number] ED Course/Re-evaluation ED Course The patient was admitted to room. A history and physical obtained. Differential diagnoses were considered. An x-ray of the lower back showing no acute osseous abnormalities. Patient was given an injection of Norflex, patient had significant relief of his symptoms, patient states he feels much better and is able to ambulate go home at this time. Did recommend following up with his primary care provider next week for reevaluation. No other questions or concerns and discharged home. Decision to Disposition Date: Nov 30, 2018 Decision to Disposition Time: 15:31 Depart Departure Latest Vital Signs Vital Signs Date Time Temp Pulse Resp B/P (MAP) Pulse Ox O2 Delivery O2 Flow Rate FiO2 11/30/18 15:37 93 16 144/50 (81) 90 Room Air 11/30/18 13:50 98.3 Impression: Primary Impression: Low back pain Condition: Improved Disposition: HOME OR SELF-CARE Referrals: DEJUAN DOSHI MD (PCP) 1 Week Patient Instructions: Acute Low Back Pain (ED), Lower Back Exercises (ED) Additional Instructions: No concerning findings on the x-ray of your back. Please follow-up with your primary care provider for reevaluation within 1-2 weeks. Use the information was provided and this packets regarding low back exercises. Consider physical therapy. Continue with regular medications. Take ibuprofen or Tylenol as needed for pain. Return to the ER for any concerns or worsening symptoms. Problem Qualifiers Primary Impression: Low back pain Chronicity: acute Back pain laterality: left Sciatica presence: without sciatica Qualified Codes: M54.5 - Low back pain MARTÍN GUNTER SIGNING AGENT-BC Nov 30, 2018 13:41
[2018-11-30] MEDS ORDERED: ORPHENADRINE 60MG/2ML INJ IM ONE (14:05)
--- NOTE | 2018-11-30 15:22 | RADIOLOGY IMAGING REPORT ---
FACILITY: [facility] - [place] PATIENT NAME: Prudencio Connolly : 1965 MR: [id number] V: [id number] EXAM DATE: ORDERING PHYSICIAN: MARTÍN GUNTER TECHNOLOGIST: [place] [facility] [place] Prudencio Connolly : 1965 Visit/Account:[id number] Date of Sevice: 11/30/2018 L-SPINE >4 VIEWS INDICATION: Back pain with radiation. COMPARISON: 11/27/2017. FINDINGS: 5 views of the lumbar spine. There are 5 nonrib-bearing lumbar vertebral bodies. The vert ebral bodies are aligned. No compression fractures, bony lesions or spondylolysis. There is again dif fuse mild degenerative change including disc space narrowing, osteophytes and facet arthropathy. The endplates are maintained. The pedicles are well seen. Soft tissues are unremarkable. IMPRESSION: Stable exam showing mild degenerative changes without acute abnormality. Report Dictated By: Benjamin Arreola at 11/30/2018 3:16 PM Report E-Signed By: Benjamin Arreola at 11/30/2018 3:19 PM WSN:[id number]
[2018-11-30 15:37] VITALS: BP 144/50
== END 2018-11-30 15:30 | disposition home or self-care (01) ==
LOC: ER 13:31
DX: M54.5 Low back pain (principal)
CPT/HCPCS: 72120; 96372; 99283; J2360

== ENCOUNTER 2018-12-10 17:39 | Emergency (ER) | payer MEDICARE, MEDICAID ==
[2016-02-16 10:09] VITALS: Wt 131.5 kg
--- NOTE | 2018-12-10 18:01 | ER Report ---
History and Physical Time Seen By MD: 18:01 HPI/ROS CHIEF COMPLAINT: Anxiety HISTORY OF PRESENT ILLNESS: 53-year-old male presents to the S tightness and anxiety. Patient states he was in an argument with his landlord over his lease. They are threatening to kick him out because of threatening behavior to other residents. Patient states that he developed some chest tightness after confronting his landlord and presented here to the ER with anxiety and chest tightness. He notes no shortness of breath, no nausea, no diaphoresis. Patient notes no leg swelling or calf pain. She states he took his Zyprexa 2.5 mg as prescribed. REVIEW OF SYSTEMS: Respiratory: No cough, no dyspnea. Cardiovascular: As above Gastrointestinal: No vomiting, no abdominal pain. Musculoskeletal: No back pain. Allergies: Coded Allergies: Haloperidol Lactate (Verified Adverse Reaction, Severe, LARYNGOSPASM, 11/15/18) niacin (Verified Adverse Reaction, Unknown, BODY RASH TO TORSO AND LIMBS, 11/15/18) Home Meds Active Scripts Lorazepam (ATIVAN) 1 Mg Tablet, 1 MG PO Q8H PRN for anxiety, #9 Prov:HAIR FLOWER DO 12/10/18 Ipratropium [place] 17 Mcg/Act (ATROVENT HFA 17 MCG/ACT) 12.9 Gm Inh, 12.9 GM INH Q4H PRN for SHORTNESS OF BREATH, #3 INH 3 Refills Prov:DEJUAN DOSHI MD 09/16/18 Apixaban (ELIQUIS) 2.5 Mg Tablet, 2.5 MG PO BID, #180 TAB 3 Refills Prov:DEJUAN DOSHI MD 08/19/18 Omeprazole (OMEPRAZOLE) 40 Mg Capsule.dr, 40 MG PO QDAY, #90 CAP 3 Refills Prov:DEJUAN DOSHI MD 08/07/18 Reported Medications Acetaminophen (TYLENOL EXTRA STRENGTH) 500 Mg Tablet, 1000 MG PO Q6H PRN for PAIN, TAB 11/15/18 Olanzapine (OLANZAPINE) 2.5 Mg Tablet, 2.5 MG PO QDAY 04/18/18 Brimonidine Tartrate (ALPHAGAN P) 5 Ml Drops, 1 DROP OU BID 12/13/14 Past Medical/Surgical History The patient has a past medical and surgical history of DVT, hypercholesterolemia, esophageal spasms, kidney stones, muscle tension, arthritis, fracture of the right hand, right foot and was, degenerative disc disease, dysphasia, wears glasses, glaucoma, multiple medicines for depression, anxiety, suicide attempt, schizoaffective disorder, skin cancer, wrist surgery, most procedure to the right ear, strabismus. Reviewed Nurses Notes: Yes Old Medical Records Reviewed: Yes Hx Smoking: Yes (1 PPWEEK X37YRS) Smoking Status: Current: Every Day Smoker Exposure to Second Hand Smoke?: No Hx Substance Use Disorder: No Hx Alcohol Use: No Physical Exam General Appearance: The patient is alert, has no immediate need for airway protection and no current signs of toxicity. Mildly anxious, gets angry when explaining what happened HEENT: Pupils equal and round no injection. Oropharynx without redness or exudate Respiratory: Chest is non tender, lungs are clear to auscultation. No chest wall tenderness Cardiac: regular rate and rhythm, no murmur Gastrointestinal: Abdomen is soft and non tender, no masses, bowel sounds n ormal. Musculoskeletal: Neck: Neck is supple and non tender. No lymphadenopathy, no JVD Extremities have full range of motion and are non tender. No edema, no calf tenderness Skin: No rashes or lesions. [ ] DIFFERENTIAL DIAGNOSIS: After history and physical exam differential diagnosis was considered for depression including functional and major depression, situational depression, anxiety, panic attack, chest tightness, medication side effect, drugs and alcohol abuse. Medical Decision Making ED Course/Re-evaluation ED Course Patient was admitted to an examination room. H&P was done. The differential diagnoses was considered. On clinical examination. Patient has a benign on clinical examination. He appears anxious, likely from confrontation with his landlord. Patient with 1 mg of Ativan. On recheck. At 30 minutes. He's feeling much better. Patient's discharged home with a prescription for Ativan 1 mg, #9 tablets to use every 8 hours as needed for anxiety. Patient advised to follow-up with his primary care if unimproved in 3-5 days. Decision to Disposition Date: December 10, 2018 Decision to Disposition Time: 18:28 Depart Departure Impression: Primary Impression: Anxiety Additional Impression: Chest tightness Condition: Improved Disposition: HOME OR SELF-CARE Referrals: DEJUAN DOSHI MD (PCP) New Scripts Lorazepam (ATIVAN) 1 Mg Tablet 1 MG PO Q8H PRN for anxiety, #9 Prov: HAIR FLOWER DO 12/10/18 Patient Instructions: Anxiety (ED) Additional Instructions: Follow-up with your primary care if unimproved in 3-5 days Problem Qualifiers HAIR FLOWER DO December 10, 2018 18:01
[2018-12-10] MEDS ORDERED: LORazepam 1 MG TAB PO ONE (18:05)
[2018-12-10] MEDS ORDERED: LORA-1456 PO (18:30)
== END 2018-12-10 18:43 | disposition home or self-care (01) ==
LOC: ER 18:33
DX: F41.9 Anxiety disorder, unspecified (principal); R07.89 Other chest pain
CPT/HCPCS: 99283; A9270

== ENCOUNTER 2019-01-03 17:05 | Emergency (ER) | payer MEDICARE, MEDICAID ==
[2016-02-16 10:09] VITALS: Wt 129.3 kg
[~2019-01-03 17:05] MED LIST changes: -RANI-366 PO; +RANI-54 PO; +ROSU10TA5 PO
[2019-01-03 17:08] VITALS: BP 157/108
--- NOTE | 2019-01-03 17:12 | ER Report ---
History and Physical Time Seen By MD: 17:12 Hx. of Stated Complaint: PATIENT REPORTS THAT HE IS HAVING PROBLEMS WITH HIS DOWNSTAIRS NEIGHBOR. THIS IS AN ONGOING PROBLEM HPI/ROS Called police secondary to his neighbor following him and harrasing him. Patient has long-standing history of similar reports with different neighbors/community members. Has known paranoid schizophrenia. Was taking Zyprexa and Remeron, but said they made him "sleepy." Now only takes Zyprexa 2.5 mg qd. Was recently given benzos in the ED for increased for anxiety. Allergies: Coded Allergies: Haloperidol Lactate (Verified Adverse Reaction, Severe, LARYNGOSPASM, 11/15/18) niacin (Verified Adverse Reaction, Unknown, BODY RASH TO TORSO AND LIMBS, 11/15/18) Home Meds Active Scripts Rosuvastatin Calcium (Rosuvastatin Calcium) 10 Mg Tablet, 1 TAB PO DAILY, #30 TAB Prov:DEJUAN DOSHI MD 12/17/18 Lorazepam (ATIVAN) 1 Mg Tablet, 1 MG PO Q8H PRN for anxiety, #9 Prov:HAIR FLOWER DO 12/10/18 Ipratropium [place] 17 Mcg/Act (ATROVENT HFA 17 MCG/ACT) 12.9 Gm Inh, 12.9 GM INH Q4H PRN for SHORTNESS OF BREATH, #3 INH 3 Refills Prov:DEJUAN DOSHI MD 09/16/18 Apixaban (ELIQUIS) 2.5 Mg Tablet, 2.5 MG PO BID, #180 TAB 3 Refills Prov:DEJUAN DOSHI MD 08/19/18 Omeprazole (OMEPRAZOLE) 40 Mg Capsule.dr, 40 MG PO QDAY, #90 CAP 3 Refills Prov:DEJUAN DOSHI MD 08/07/18 Reported Medications Acetaminophen (TYLENOL EXTRA STRENGTH) 500 Mg Tablet, 1000 MG PO Q6H PRN for PAIN, TAB 11/15/18 Olanzapine (OLANZAPINE) 2.5 Mg Tablet, 2.5 MG PO QDAY 04/18/18 Brimonidine Tartrate (ALPHAGAN P) 5 Ml Drops, 1 DROP OU BID 12/13/14 Hx Smoking: Yes (1 PPWEEK X37YRS) Smoking Status: Current: Every Day Smoker Exposure to Second Hand Smoke?: No Hx Substance Use Disorder: No Hx Alcohol Use: No Constitutional Vital Sign - Last 24 Hours 01/03/19 17:08 Temp 98.5 Pulse 95 Resp 20 B/P (MAP) 157/108 Pulse Ox 95 O2 Delivery Room Air Physical Exam General Appearance: The patient is alert, has no immediate need for airway protection and no current signs of toxicity. Eyes: Pupils equal and round no injection. Respiratory: Chest is non tender, lungs are clear to auscultation. Cardiac: regular rate and rhythm Neck: Neck is supple and non tender. Extremities have full range of motion and are non tender. Skin: No rashes or lesions. Medical Decision Making ED Course/Re-evaluation ED Course This is a very pleasant patient well-known to the emergency department for similar complaints. Had a long conversation with him about increasing his Zyprexa instead of using benzodiazepines for anxiety. He agrees that benzodiazepines are not a good route. He also agrees that taking Zyprexa 5mg would be beneficial. He was once taking 20 mg. He has spoken with police in the ED. He feels safe for discharge. He will follow up this week with his PCM. Decision to Disposition Date: January 03, 2019 Decision to Disposition Time: 17:12 Depart Departure Latest Vital Signs Vital Signs Date Time Temp Pulse Resp B/P (MAP) Pulse Ox O2 Delivery O2 Flow Rate FiO2 01/03/19 17:08 98.5 95 20 157/108 95 Room Air Impression: Primary Impression: Generalized anxiety disorder Condition: Improved Disposition: HOME OR SELF-CARE Referrals: DEJUAN DOSHI MD (PCP) Additional Instructions: Increase your Zyprexa to 5mg everyday instead of 2.5mg CAITLIN BLAND MD January 03, 2019 17:12
[2019-01-03] MEDS ORDERED: OLANZapine ZYDIS ODT 5MG TABDP PO ONE (17:55)
== END 2019-01-03 18:27 | disposition home or self-care (01) ==
LOC: ER 17:14
DX: F41.1 Generalized anxiety disorder (principal); F20.0 Paranoid schizophrenia; F17.210 Nicotine dependence, cigarettes, uncomplicated; Z79.899 Other long term (current) drug therapy
CPT/HCPCS: 99283; A9270

== ENCOUNTER → 2019-01-13 | Outpatient (CLI) | payer MEDICARE, MEDICAID ==
[2016-02-16 10:09] VITALS: BMI 33.1
== END ==
LOC: LAB 07:24
PROVIDERS: ATTEND Emergency Medicine
DX: Z12.5 Encounter for screening for malignant neoplasm of prostate (principal); F41.1 Generalized anxiety disorder; E78.5 Hyperlipidemia, unspecified
CPT/HCPCS: 36415; 82607; G0103; 82465; 83718; 84153; 84478

== ENCOUNTER 2019-01-20 14:27 | Emergency (ER) | payer MEDICARE, MEDICAID ==
[2016-02-16 10:09] VITALS: Wt 132.0 kg
[~2019-01-20 14:27] MED LIST changes: +CYAN500T39 PO; +ROSU10TA PO
[2019-01-20 14:34] VITALS: BP 142/102
[2019-01-20] MEDS ORDERED: OLANZapine ZYDIS ODT 5MG TABDP PO ONE (14:55)
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
[2019-01-20 15:00] LABS: PLATELET COUNT, AUTOMATED 221 K/uL (150-450)
== END 2019-01-20 16:45 ==
LOC: ER 14:41
DX: R45.851 Suicidal ideations (principal); R45.850 Homicidal ideations
CPT/HCPCS: 36415; 80305; 80320; 80329; 81001; 82040; 82247; 82310; 82374; 82435; 82565; 82947; 83735; 84075; 84132; 84155; 84295; 84443; 84450; 84460; 84520; 85025; 99285

== ENCOUNTER 2019-01-20 16:33 | Inpatient (IN) | payer MEDICARE, MEDICAID ==
[2016-02-16 10:09] VITALS: Ht 195.6 cm; Wt 132.0 kg
[~2019-01-20] VITALS: Ht 195.6 cm; Wt 132.0 kg
[2019-01-20 17:15] VITALS: BP 123/79
[2019-01-20] MEDS ORDERED: IPRATROPIUM 0.5MG/2.5ML NEB NEB PRN (18:00)
[2019-01-20] MEDS ORDERED: LORazepam 1 MG TAB PO PRN (18:00)
[2019-01-20] MEDS ORDERED: OLANZapine 5 MG TAB PO ONE (19:30)
[2019-01-20] MEDS ORDERED: LORazepam 1 MG TAB PO ONE (19:30)
[2019-01-20] MEDS ORDERED: diphenhydrAMINE 25 MG CAP PO ONE (19:30)
--- NOTE | 2019-01-20 19:30 | NUR ---
Pt awake in Unit C. pacing yelling obscenities, pounding on the windows and slamming door. Operating Engineer attempted to talk with pt., Unable to resolve his anger issues. Dr Lozano notified of pt situation. Medication ordered TORB. Pt took medication with out problems.
[2019-01-20] MEDS: APIXABAN 2.5 MG TABLET PO SCH (21:41)
[2019-01-20] MEDS: OLANZapine 5 MG TAB PO SCH (21:42)
[2019-01-21 06:25] VITALS: BP 127/86
[2019-01-21] MEDS: OLANZapine 5 MG TAB PO SCH ×2 (08:16→21:23)
[2019-01-21] MEDS: APIXABAN 2.5 MG TABLET PO SCH ×2 (08:17→21:23)
[2019-01-21] MEDS: ROSUVASTATIN CALCIUM 10 MG TAB PO SCH (08:17)
[2019-01-21] MEDS ORDERED: PANTOPRAZOLE SOD 20 MG TABEC PO SCH (09:00)
[2019-01-21] MEDS: NICOTINE POLACRILEX 2 MG GUM PO PRN ×3 (10:20→16:28)
[2019-01-21] MEDS: COMBIVENT 4 GR INHALER IH SCH ×2 (13:31→17:45)
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
[2019-01-22] MEDS: COMBIVENT 4 GR INHALER IH SCH ×4 (05:24→16:58)
[2019-01-22 05:27] VITALS: BP 115/81
[2019-01-22] MEDS: APIXABAN 2.5 MG TABLET PO SCH ×2 (08:03→21:43)
[2019-01-22] MEDS: ROSUVASTATIN CALCIUM 10 MG TAB PO SCH (08:04)
[2019-01-22] MEDS: OLANZapine 5 MG TAB PO SCH ×2 (08:04→21:43)
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
[2019-01-22] MEDS: NICOTINE POLACRILEX 2 MG GUM PO PRN ×2 (14:04→21:43)
[2019-01-22] MEDS ORDERED: ACETAMINOPHEN 325 MG TAB PO PRN (15:50)
[2019-01-22 22:28] VITALS: BP 124/65
[2019-01-23] MEDS: COMBIVENT 4 GR INHALER IH SCH ×2 (05:32→09:34)
[2019-01-23 05:35] VITALS: BP 137/79
[2019-01-23] MEDS: NICOTINE POLACRILEX 2 MG GUM PO PRN (07:28)
[2019-01-23] MEDS: ROSUVASTATIN CALCIUM 10 MG TAB PO SCH (08:14)
[2019-01-23] MEDS: APIXABAN 2.5 MG TABLET PO SCH (08:14)
[2019-01-23] MEDS: OLANZapine 5 MG TAB PO SCH (08:14)
--- NOTE | 2019-01-24 22:09 | SCHAAF DISCHARGE ---
DATE OF ADMISSION: January 20, 2019 DATE OF DISCHARGE: January 23, 2019 ATTENDING PHYSICIAN Jean Lozano MD Patient was seen at approximately 1100 hours in the a.m. of 23 January 2019 for note concerning this dictation. FINAL DIAGNOSES 1. Paranoid personality disorder. 2. Generalized anxiety disorder. 3. 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 4. Social stressors related to illness. REASON FOR ADMISSION This is a very well-known 53-year-old male who was admitted to the Behavioral Health Unit here at [facility] after experiencing suicidal ideation and brief homicidal threats toward environmental coordinator at local housing. [place] was initiated, and the environmental coordinator was warned. Police notified. It should be noted that after many admissions here at [facility] throughout the years, this patient does not have a history of aggression toward staff or other patients on the floor. Patient was also apologetic for making these remarks directed toward environmental coordinator. It is apparent that patient has been evicted from his home there in the next 30 days, but patient will remain there while he attempts to find suitable housing. Patient has a long history of seemingly overreactions to stressors. This was likely due to his paranoid personality disorder and cluster B personality traits as well. Patient has a long history of following up in the community with various providers in therapy and continues to follow up with Brittany Godfrey at this time. Patient remained pleasant overall on the unit. Condition continued to improve, and patient was discharged to home. PHYSICAL EXAMINATION Please see emergency room note. Notable for 53-year-old male in no acute medical distress. Vital signs at the time of admission: Temperature 98.1, pulse 84, respiratory rate 16, blood pressure 142/102, and pulse oximetry 93% on room air. Vital signs at the time of discharge from [facility] Unit: Temperature 98.4, pulse 61, respiratory rate 16, blood pressure 137/79, and pulse oximetry 94% on room air. LABORATORY DATA Upon admission, CBC was unremarkable. CMP unremarkable as well. Mild elevation in ALT of 62. PSA is 1.35 and normal range. Urinalysis unremarkable overall. Toxicology screen negative. Undetectable serum alcohol level. MENTAL STATUS EXAMINATION AT TIME OF DISCHARGE GENERAL APPEARANCE, BEHAVIOR, AND ATTITUDE: This is a polite, 53-year-old male making fair eye contact, which over the years is seen as baseline for this patient. No periods of tearfulness. No psychomotor agitation or retardation. Patient cooperative and polite. SPEECH: Within normal limits. Regular rate, rhythm, volume, and tone. MOOD: Described as good. AFFECT: Full at times briefly and mood congruent. THOUGHT PROCESSES: Seem goal directed. No obvious loose associations or flight of ideas. THOUGHT CONTENT: Free of any obvious auditory or visual hallucinations, and patient denying. Ideas of reference along with overvalued ideas of persecutory type thoughts continue with delusions of persecution as well. Patient adamantly denying suicidal or homicidal ideation. SENSORIUM: Clear. COGNITION: Alert and oriented to person, place, time, and situation. MEMORY: Immediate, recent, and remote estimated intact. INTELLIGENCE: Average to above based on interview and historical data and previous knowledge of this patient. INSIGHT AND JUDGMENT: Appropriate for ongoing outpatient followup at this time. Patient overall continues to display poor stress coping mechanisms. RESULTS OF TESTING Imaging: None. Laboratory data: See above. CONSULTATIONS None. TREATMENT Patient received medications, participated in individual and group therapy. HOSPITAL COURSE Patient arrived voluntarily to the Emergency Room and was admitted without incident. Patient was showing some brief displays of anger and temper tantrum throwing on the unit; however, again, this aggression was not directed toward any staff member, nor has it been in the past, nor was it directed toward patient. Patient willingly taking an increased amount of patient's Zyprexa, which he remains on as an outpatient with good results. Patient continued to improve and did participate in individual and group therapy cooperatively. CONDITION OF PATIENT ON DISCHARGE Stable. Considered a minimal risk to himself or others, appropriate for outpatient care. DISPOSITION Patient discharged to home. He would continue to follow up with Brittany Epifanio and outpatient therapy providers as well. DISCHARGE MEDICATIONS 1. Olanzapine 2.5 twice daily. Patient would increase dose to 5 mg twice daily if necessary for any agitation. 2. Patient will remain on vitamin B12 500 mcg daily as well. 3. Tylenol as needed for pain. 4. Atrovent q.4 hours p.r.n. for shortness of breath. 5. Omeprazole 40 mg p.o. q. day. 6. Crestor 10 mg daily. 7. Eliquis is at 2.5 mg twice daily as well. PLAN Crisis line was given. Risks, benefits, and alternatives of above discharge plan were discussed. Informed consent was given to proceed with the above discharge plan by this competent patient. MTDD
== END 2019-01-23 09:47 | disposition home or self-care (01) | DRG 883 ==
LOC: BHS 16:33
PROVIDERS: ADMIT Psychiatry & Neurology Psychiatry; ATTEND Psychiatry & Neurology Psychiatry
DX: F60.0 Paranoid personality disorder (principal); D68.9 Coagulation defect, unspecified; F25.9 Schizoaffective disorder, unspecified; F41.1 Generalized anxiety disorder
CPT/HCPCS: 94640; J3535; J7644; Q0163

== ENCOUNTER → 2019-03-13 | Outpatient (CLI) | payer MEDICARE, MEDICAID ==
[2016-02-16 10:09] VITALS: BMI 33.1
== END ==
LOC: RESP 20:20
PROVIDERS: ATTEND Emergency Medicine
DX: G47.33 Obstructive sleep apnea (adult) (pediatric) (principal)